=== PATIENT | female | born 1955 | race Caucasian/White ===

== ENCOUNTER 2016-06-02 21:22 | Inpatient (IN) | payer BC ==
--- NOTE | ~2016-06-02 | DS ---
Discharge Summary [facility] [address] [place]. [address] NAME: MOOKIE LUCAS : 59 STATUS : ADM IN PAT#: [id number] AGE: 61 ADM/REG DATE : 06/02/16 MR#: [id number] REPORT SERV DATE: 06/21/16 DICTATED BY: Sushila GUERRERO DATE: 06/21/16 REPORT STATUS : Draft TRANSCRIBED BY: MODL DATE: 06/21/16 ADMISSION DATE: 06/02/2016 DISCHARGE DATE: INTERIM SUMMARY DATE: 06/21/2016. For details of earlier hospital stay, see previous interim summaries, most recently dictated by myself on 06/14/2016. DIAGNOSES AT THE TIME OF THIS INTERIM SUMMARY: 1. Encephalopathy, present on admission, resolved, suspected serotonin syndrome. 2. Insulin-requiring diabetes. 3. Chronic kidney disease. 4. Hypertension. 5. Catheter-related urinary tract infection, cultures show Escherichia coli. 6. Anemia, etiology unclear, evaluation in progress. HOSPITAL COURSE: Continuing on with hospital stay starting 06/15/2016: The patient continues to make tremendous progress. She is awake, alert, conversant, has passed her swallow evaluation, and has been started on a diet. We have transitioned her from intermediate care to [address] [place], [place] [address]etry. We still are waiting urine studies and urinalysis for heavy metal screen. Despite her remarkable recovery, she does have a few minor issues that we are currently treating. She did develop a catheter-associated UTI. The catheter has been removed. Her culture was positive for E coli. She initially received ceftriaxone, and based on the culture data, has been transitioned to amoxicillin. She is currently on day 4 of a 7-day course of therapy. She has also had progressive anemia of uncertain etiology. We are checking fecal occult blood test, iron studies, and monitoring her CBC. We have sent initial evaluation for rehab placement. [facility] has accepted her medically and we are awaiting financial approval. Hopefully, over the weekend, we can further evaluate and clarify her anemia, and then in the first of the week, she can transition to rehabilitation for ongoing improvement in her functional status. The patient continues to be followed by the Hospitalist Services as well as the Neurology Service, continues to be seen and evaluated by both Physical and Occupational therapy. LABORATORY DATA: Significant labs at the time of this interim summary show a red cell count of 7.7, hematocrit of 24.3, BUN of 24, creatinine of 1.00. [facility] Sushila Guerrero M.D. / [id number] Discharge Summary [address] [address] NAME: MOOKIE LUCAS : 59 STATUS : ADM IN PAT#: [id number] AGE: 61 ADM/REG DATE : 06/02/16 MR#: [id number] REPORT SERV DATE: 06/21/16 DICTATED BY: Sushila GUERRERO DATE: 06/21/16 REPORT STATUS : Draft TRANSCRIBED BY: LEIA DATE: 06/21/16 CC: Екатерина Blackman
--- NOTE | ~2016-06-02 | DS ---
Discharge Summary [facility] [address] [place]. [address] NAME: MOOKIE LUCAS : 59 STATUS : DIS IN PAT#: [id number] AGE: 61 ADM/REG DATE : 06/02/16 MR#: [id number] REPORT SERV DATE: 06/29/16 DICTATED BY: PAVAN BARRAZA DATE: 06/28/16 REPORT STATUS : Draft TRANSCRIBED BY: MODL DATE: 06/28/16 ADMISSION DATE: 06/02/2016 DISCHARGE DATE: 06/28/2016 DISCHARGE DIAGNOSES: 1. Encephalopathy, present on admission, thought to be due to serotonin syndrome. 2. Type 2 diabetes mellitus, somewhat uncontrolled. 3. Chronic kidney disease. 4. Hypertension. 5. Catheter-related urinary tract infection with Escherichia coli, currently treated. 6. Anemia of most likely chronic disease. 7. Chronic pain syndrome. 8. Generalized debility. 9. Depression and anxiety. 10.History of right foot cellulitis, currently resolved. 11.Obstructive sleep apnea, on nighttime BiPAP. 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 13.History of pneumonia. 14.History of gastroparesis. CONSULTANTS DURING THIS HOSPITALIZATION: 1. Citlaly Marmolejo MD of Neurology. 2. Manjit Rob M.D. of Cardiology. INVASIVE PROCEDURES DONE DURING THIS HOSPITALIZATION: None. IMAGING DONE DURING THIS HOSPITALIZATION: Multiple. Please refer to the chart for details of that. BRIEF HISTORY OF PRESENT ILLNESS: The patient is a 61-year-old white female, admitted because of metabolic encephalopathy, acute kidney injury. For detailed history and physical exam, please see note dictated by Dr. Chris Magallanes on 06/02/2016. HOSPITAL COURSE: After being admitted to the hospital, this patient continued to be in the intermediate care unit up until 06/21/2016. Please refer to two interim summaries dictated by Dr. Ho, one on 06/14/2016 and one on 06/21/2016. This patient then was transitioned to the floor and after being transitioned to the floor, this patient continued to be followed by Neurology and also care was transferred to Dr. Reza and Dr. Smith, but while on the floor, this patient was receiving benzodiazepines and sedating medications. She had an episode of respiratory arrest and cardiac arrest. She was immediately transferred to the ICU, the patient spent two days in the ICU, and then transferred back to the floor with continued BiPAP at night. Since on the floor, this patient has done relatively well and continued to improve. Her glucoses have been somewhat high, but we have started to adjust her insulin and she continues to do better with that. There have been multiple concerns about her overall care and some social issues as documented in the chart by other physicians. We have collected a 24-hour urine sample for possibility of porphyria Discharge Summary [address] [address] NAME: MOOKIE LUCAS : 59 STATUS : DIS IN PAT#: [id number] AGE: 61 ADM/REG DATE : 06/02/16 MR#: [id number] REPORT SERV DATE: 06/29/16 DICTATED BY: PAVAN BARRAZA DATE: 06/28/16 REPORT STATUS : Draft TRANSCRIBED BY: LEIA DATE: 06/28/16 and studies, these studies will be followed up in the outpatient setting. Neurology has signed off. All other consultants have signed off and recommended that this patient can be transferred to rehab at this time, she remained stable and is being transferred back to rehab in stable condition. DISCHARGE DISPOSITION: To rehab. DISCHARGE ACTIVITY: Per facility. DISCHARGE DIET: 1800-calorie [employer] diet. DISCHARGE MEDICATIONS: Norvasc 10 mg twice daily, vitamin C 500 mg once daily, aspirin 81 mg once daily, Lipitor 40 mg once daily, baclofen 10 mg twice daily, vitamin B12 2500 mcg sublingual daily, vitamin D 50,000 units once weekly for eight doses and then all oral 1000 units per day, gabapentin 300 mg three times daily for chronic pain control, NovoLog insulin 5 units subcutaneously before each meal, lisinopril 20 mg once daily, multivitamins one tablet daily, MiraLAX one packet daily, Catapres patch 0.3 topical once every seven days, hydralazine 100 mg twice daily, Levemir 15 units subcutaneously once at bedtime, Coreg 6.25 mg p.o. twice daily, multivitamins one tablet daily, Zantac 150 mg twice daily, and fish oil one tablet p.o. once at bedtime. DISCHARGE FOLLOWUP: With Dr. Maddie Powell post rehab. More than 40 minutes spent planning this patient's discharge, reconciling medications, arranging proper discharge, and documenting this discharge. PHUC/SHAIL Pavan Barraza M.D. / [id number] CC: Екатерина Soto REBECCA ANN
--- NOTE | ~2016-06-02 | HP ---
History And Physical [place] [address] [facility] [place]. [address] NAME: MOOKIE LUCAS : 59 STATUS : ADM Shell PAT#: [id number] AGE: 61 ADM/REG DATE : 06/02/16 MR#: [id number] REPORT SERV DATE: 06/03/16 DICTATED BY: DEREK INFANTE DATE: 06/03/16 REPORT STATUS : Draft TRANSCRIBED BY: MODL DATE: 06/03/16 DATE OF ADMISSION: 06/02/2016 CHIEF COMPLAINT: A 61-year-old female, presenting with prolonged periods of incoherence and confusion. HISTORY OF PRESENT ILLNESS: The patient's history was obtained through careful interview with the patient, , coupled with review of [employer] and [employer] medical records. The patient states that about a month ago she had her insulin pump adjusted by her rubber calender helper, Dr. Topher Patterson, and has been having increasing hypoglycemic episodes with sometimes her blood sugar in the 50s, but she has also noticed at times that she has wide variations in her blood sugars with also frequent blood sugars in the 300s. In fact, over the last two days, there have been more severely elevated blood sugars than low's. But then on the morning of admission, she had gone to confucianist, and by the afternoon, had developed some hypoglycemia that she was treating and then she and her were going to go to evening confucianist as well but she began staggering and she went up to the car. They finally got to the confucianist at about 04:30 p.m., and she felt extremely weak. They checked her blood sugar and it was 198 and then patient passed out and became incoherent and unable to be aroused for a period of time. In total, for about four hours, the patient was in and out of consciousness. She was able at times to ambulate to the car but became incoherent. She had lost memory completely of all these episodes. Finally at about 8:30 in the evening, the patient began to revive, but she seemed confused about what was going on around here and even slightly disoriented. There was no hemiparesis. No double vision. No dysarthria. No difficulty swallowing. No vertigo. No dizziness. No lightheadedness. She does describe some reflux symptoms but no nausea or vomiting. She states that she has "immense bloating of her abdomen," a discomfort of about a 6/10 severity. She has chronic back pain in the lower portion for which she takes Neurontin, aching quality, 8/10 severity, exacerbated by her illness today. She did lose urine continence early in the afternoon before this episode came on but has not this evening. REVIEW OF SYSTEMS: Otherwise, complete review of systems was obtained and was negative. PAST MEDICAL HISTORY: 1. Chronic kidney disease, stage III, followed by Dr. Rocha. History And Physical [address] [address] NAME: MOOKIE LUCAS : 59 STATUS : ADM Shell PAT#: [id number] AGE: 61 ADM/REG DATE : 06/02/16 MR#: [id number] REPORT SERV DATE: 06/03/16 DICTATED BY: DEREK INFANTE DATE: 06/03/16 REPORT STATUS : Draft TRANSCRIBED BY: LEIA DATE: 06/03/16 2. Diabetes, on an insulin pump, followed by Dr. Topher Patterson. 3. Depression and anxiety. 4. Hypertension. 5. Right foot cellulitis. 6. Obstructive sleep apnea, on BiPAP. 7. Neuropathy. 8. Retinopathy. 9. Pneumonia. 10.Gastroparesis. PAST SURGICAL HISTORY: 1. Hysterectomy. 2. Cholecystectomy. 3. Neck cyst surgery. 4. Back abscess, incision and drainage. ALLERGIES TO: Zoloft, Paxil, Cymbalta, sulfa, and Phenergan. SOCIAL HISTORY: No tobacco abuse. Occasional alcohol but has quit for a number of years. She became a in 2004 but has been remarried for about three years now. She and her live in [place], [place]. She works in a [employer] center for the [employer]. She used to work in [employer]. FAMILY HISTORY: Brother and father with diabetes and heart disease. Mother with breast cancer. CURRENT MEDICATIONS: Include amitriptyline 25 mg p.o. at bedtime, vitamin C, aspirin 81 mg p.o. daily, Lipitor 40 mg p.o. daily, Bumex 1 mg p.o. b.i.d., vitamin D, Celexa 20 mg p.o. b.i.d., vitamin B12, Neurontin 600 mg in the morning and 900 mg at night, insulin pump with NovoLog insulin, lisinopril 20 mg p.o. b.i.d., multivitamin, Zantac 150 mg p.o. b.i.d., Nucynta 50 mg p.o. t.i.d., Coreg 6.25 mg p.o. b.i.d., fish oil, and apple cider vinegar p.o. b.i.d. PHYSICAL EXAMINATION: VITAL SIGNS: Temperature 98.7, pulse 79, blood pressure 233/99, respiratory rate 17, and O2 saturation 97% on room air. GENERAL: A pleasant, cooperative female. She is in no evidence of distress at this time. NEUROLOGICAL: Cranial nerves 2 through 12 are intact and symmetrical. The patient has 5/5 strength in upper and lower extremities that is symmetrical. HEENT: Pupils are equal, round, and reactive to light. No conjunctival pallor. No scleral icterus. Nares are patent. Oropharynx is clear of obstruction. Very dry mucous membranes. NECK: Trachea midline. No thyromegaly. LYMPH: No cervical lymphadenopathy. No supraclavicular lymphadenopathy. RESPIRATORY: Clear to auscultation at bases. No wheezes, rales, or rhonchi. Normal respiratory effort. CARDIOVASCULAR: Regular rate and rhythm. No murmurs, rubs, or gallops. No extremity edema History And Physical [address] [address] NAME: MOOKIE LUCAS : 59 STATUS : ADM Shell PAT#: [id number] AGE: 61 ADM/REG DATE : 06/02/16 MR#: [id number] REPORT SERV DATE: 06/03/16 DICTATED BY: DEREK INFANTE DATE: 06/03/16 REPORT STATUS : Draft TRANSCRIBED BY: LEIA DATE: 06/03/16 is appreciated. ABDOMEN: Soft, nontender, nondistended. Normal bowel sounds auscultated throughout. No organomegaly. DERMATOLOGICAL: Warm and dry extremities. No pallor, no cyanosis. PSYCHIATRIC: Notably flat affect, but claims to be in a good mood. She is currently alert and oriented x3, although she has loss of memory of some of the events leading up to admission. LABORATORY DATA: White blood cell count 8.3, hemoglobin 11, hematocrit 34, and platelets 282. Sodium 143, potassium 3.8, chloride 102, bicarb 28, BUN 36, creatinine 1.60, glucose 243, brain natriuretic peptide 37, troponin negative, and INR 1.0. STUDIES: 1. Chest x-ray by my own evaluation shows no acute cardiopulmonary process. 2. EKG by my own evaluation shows sinus rhythm, first-degree AV block, a large anterior infarct, no comparison EKG at this time. 3. CT scan of the brain without contrast shows no acute intracranial process. ASSESSMENT AND PLAN: 1. Encephalopathy, incoherence, about a four hour period of prolonged illness, quite severe presentation with postictal like period but no convulsions. A negative CT scan was reported. I would like to obtain a neurology consult. Check an EEG. Check an MRI of the brain. Check telemetry. Check echocardiogram. Check fasting lipid panel. 2. Hypertensive urgency. Placed on nitroglycerin paste, p.r.n. medications. Continue home medications. 3. Uncontrolled diabetes. Continue insulin pump. Check hemoglobin A1c. The patient does see Dr. Topher Patterson as outpatient, an rubber calender helper. 4. Obstructive sleep apnea. Continue nighttime BiPAP. 5. Chronic kidney disease, stage III. 6. Lymphedema. Check a venous Doppler ultrasound of lower extremities to rule out DVT. K[facility]/MODL Derek Infante M.D. / [id number] CC: Emmett Melvin Jr, MD
--- NOTE | ~2016-06-02 | PUL ---
[place] [address] [place]. [address] NAME: MOOKIE LUCAS : 59 STATUS : ADM IN PAT#: [id number] AGE: 61 ADM/REG DATE : 06/02/16 MR#: [id number] REPORT SERV DATE: 06/09/16 DICTATED BY: JEFFREY VERDUZCO DATE: 06/09/16 REPORT STATUS : Draft TRANSCRIBED BY: LEIA DATE: 06/09/16 PULMONARY FUNCTION TEST Overnight oximetry performed on 2 liters nasal cannula. Total valid sampling time was 6 hours and 51 minutes. Saturations were less than 88% for 6 hours and 46 minutes. INTERPRETATION: While on 2 liters nasal cannula, abnormal oximetry report, consider oxygen titration study or sleep study. Clinical correlation is recommended. JONES/LEIA Jeffrey Verduzco M.D. / [id number] CC: Med Smith MD
--- NOTE | ~2016-06-02 | EEG ---
Electroencephalogram [place] [address] [place]. [address] NAME: MOOKIE LUCAS : 59 STATUS : ADM IN PAT#: [id number] AGE: 61 ADM/REG DATE : 06/02/16 MR#: [id number] REPORT SERV DATE: 06/14/16 DICTATED BY: CITLALY MARMOLEJO DATE: 06/14/16 REPORT STATUS : Draft TRANSCRIBED BY: LEIA DATE: 06/14/16 EEG NUMBER: [id number]. INTERPRETING PHYSICIAN: Citlaly Marmolejo M.D. AGE: 61. REASON FOR EEG: Encephalopathy, abnormal movements, rule out seizures. 23 surface electrodes, 10-20 international placement was used. The patient was noted to be unresponsive, restless with intermittent tonic activity, which involve torso on both arms. Photic stimulation was performed. The background activity consisted of continuous low voltage beta range activity. Predominant rhythm posteriorly was between 4 and 6 cycles per second of low-voltage. Intermittent triphasic waveforms were noted anteriorly and centrally, although the patient appeared to have muscle tensing with developer support engineer increase of muscle activity on the EEG. No paroxysmal or epileptiform activity was seen during this study. No significant asymmetry of cerebral activity was present. Photic stimulation did not bring out additional abnormality. IMPRESSION: ABNORMAL EEG CHARACTERIZED BY PRESENCE OF SLOWING AND DISORGANIZATION OF CEREBRAL ACTIVITY. LARGE AMOUNT OF SUPERIMPOSED LOW VOLTAGE BETA RANGE ACTIVITY MAY REPRESENT MEDICATION EFFECT. NO PAROXYSMAL OR EPILEPTIFORM ACTIVITY WAS SEEN DURING THIS STUDY. INTERMITTENT BIPHASIC AND TRIPHASIC WAVEFORMS. THE PATIENT SUGGEST PRESENCE OF UNDERLYING METABOLIC ENCEPHALOPATHY. CLINICAL CORRELATION IS RECOMMENDED. UMER/LEIA Citlaly Marmolejo MD / [id number] CC: Екатерина Munoz Rebecca Ann
--- NOTE | ~2016-06-02 | CN ---
Consultation Report [facility] [address] [place]. [address] NAME: MOOKIE LUCAS : 59 STATUS : ADM Shell PAT#: [id number] AGE: 61 ADM/REG DATE : 06/02/16 MR#: [id number] REPORT SERV DATE: 06/03/16 DICTATED BY: GARY WILKES DATE: 06/03/16 REPORT STATUS : Draft TRANSCRIBED BY: MODL DATE: 06/03/16 NEUROLOGY CONSULTATION DATE OF CONSULTATION: 06/03/2016 REASON FOR CONSULTATION: Incoherence and confusion. PCP: Dr. Kenton Powell. HOSPITALIST: Dr. Emmett Melvin. HISTORY OF PRESENT ILLNESS: The patient is a 61-year-old female, who was diagnosed with diabetes mellitus type 1 after the of her first . She claims that she is a very brittle diabetic. She has an insulin pump but as of lately, she has been hypoglycemic. She states that she has been "very bad over the Marshall holidays" which has seemed to contribute to her hypoglycemia. Yesterday, she had an episode of hypoglycemia in the morning and corrected it with sugar and protein. She went to [employer] with her (who is the solidworks mechanical designer) and supposedly walked in the baptism at 3:45 p.m. The patient does not remember this. She sat down next to her in the [employer] pew for approximately 30 minutes (she did not remember this). She walked out of the baptism with some assistance and it was at this time, that her and baptism members realized something was wrong. Her called a physician friend who suggested that he bring her to the emergency department for further evaluation and treatment. At approximately 8:30 p.m., the patient "awoke and remembered seeing the [employer] on TV". She did not know where she was, she was groggy and confused. The patient has had episodes of hypoglycemia where she has passed out but this one was different. This lasted much longer and had elements of drowsiness and confusion. PAST MEDICAL HISTORY: Chronic kidney disease stage 3. Diabetes mellitus type 1 (patient on insulin pump). Depression and anxiety. Hypertension. Right foot cellulitis. Obstructive sleep apnea (the patient uses BiPAP). Neuropathy. Retinopathy. History of pneumonia. Gastroparesis. PAST SURGICAL HISTORY: Total abdominal hysterectomy, cholecystectomy, cyst removal on the neck, and back abscess incision and drainage. HOME MEDICATION LIST: Includes Elavil 25 mg at bedtime; vitamin C 500 mg daily; aspirin 81 mg daily; Lipitor 40 mg daily; Bumex 1 mg twice a day; vitamin D 1000 units daily; Celexa 20 mg b.i.d.; vitamin B12 of 2500 mcg daily; Neurontin 600 mg in the morning and 900 mg at bedtime; NovoLog insulin sliding scale per [employer] pump; Zestril 20 mg twice a day; centrum tablet daily; Zantac 150 mg twice a day; Nucynta 50 mg three times a day; Coreg 0.5 mg twice a day; fish oil 1 tablet daily; and apple cider vinegar one tablet twice a day. Consultation Report [facility] [address] [place]. [address] NAME: MOOKIE LUCAS : 59 STATUS : ADM Shell PAT#: [id number] AGE: 61 ADM/REG DATE : 06/02/16 MR#: [id number] REPORT SERV DATE: 06/03/16 DICTATED BY: GARY WILKES DATE: 06/03/16 REPORT STATUS : Draft TRANSCRIBED BY: LEIA DATE: 06/03/16 ALLERGIES: CYMBALTA, BACTRIM, PHENERGAN, ZOLOFT, AND PAXIL. SOCIAL HISTORY: The patient lives with her second . She has no children. She works in a [employer] center for the [employer]. She does not smoke, drink alcohol, or use illicits. FAMILY HISTORY: The patient's mother from breast cancer. Her father from complications of diabetes and heart disease. Her brother also had complications from diabetes and heart disease. REVIEW OF SYSTEMS: See HPI. PHYSICAL EXAMINATION: GENERAL: The patient is a 61-year-old female, who stands 5 feet 5 inches tall. Weighs 210 pounds. She is afebrile. VITAL SIGNS: Heart rate 78, respiratory rate 15, O2 saturations on room air 98%, and blood pressure 144/63. NEUROLOGIC: The patient is alert. She is oriented x4, pleasant, communicates appropriately. Pupils are 3 mm, PERRLA. Cranial nerves II through XII are intact. She can move all extremities x4. There is no tremor, dysmetria, and asterixis. No ataxia with uavysf-jy-ozve or unuj-uc-cuyi. Upper extremity strength is 5/5. Upper DTRs 2+ bilaterally. No sensory deficits. Lower extremities, strength is 5/5. Patellar reflexes 2+ bilaterally. Achilles 1+ bilaterally. Downgoing toes. The patient can get up and ambulate. No ataxia. Romberg negative. She is unable to tandem. Sensation on the lower extremities is diminished. Position sense intact. Vibratory and temperature sensation mildly diminished in both feet. DIAGNOSTICS: CBC is normal. BMP: Potassium 3.7, BUN 30, creatinine 1.26, glucose 163. Venous duplex study is negative for DVT. Chest x-ray no acute changes. CT of the brain, no acute changes. NIH stroke scale is 0. ASSESSMENT/PLAN: Syncopal episode. Etiology unknown. The patient could have had hypoglycemia, seizure, TIA, or orthostasis. At this point, the patient will undergo an MRI of the brain without gadolinium and an MRA of the head and neck with gadolinium. She will have an EEG done today. She already had an echocardiogram. The nursing staff will check orthostatic vital signs every shift. Additional lab work will be checked and the patient's medications will be evaluated. She is on a lot of serotonergic agents. Her Nucynta will be discontinued and she will be kept on Elavil and Celexa. Thank you again for including us in consultation. ADRIENNE/LEIA Consultation Report [address] [place]. [address] NAME: MOOKIE LUCAS : 59 STATUS : ADM Shell PAT#: [id number] AGE: 61 ADM/REG DATE : 06/02/16 MR#: [id number] REPORT SERV DATE: 06/03/16 DICTATED BY: GARY WILKES DATE: 06/03/16 REPORT STATUS : Draft TRANSCRIBED BY: LEIA DATE: 06/03/16 SWATHI Scott-MELY / [id number] CC: Laine Osborn M.D. KENTON Melvin Jr, MD
--- NOTE | ~2016-06-02 | EEG ---
Electroencephalogram [facility] [address] [place]. [address] NAME: MOOKIE LUCAS : 59 STATUS : ADM IN PAT#: [id number] AGE: 61 ADM/REG DATE : 06/02/16 MR#: [id number] REPORT SERV DATE: 06/07/16 DICTATED BY: DATE: REPORT STATUS : Draft TRANSCRIBED BY: MODL DATE: 06/07/16 NEUROLOGY EEG REPORT. DATE OF EVALUATION: 06/06/2016 at 0300 hour to 06/06/2016 at 2154 hour. This is an extended EEG monitoring DESCRIPTION: This EEG was performed using 10/20 electrode placement system. During the EEG study, the patient was noted to have symmetrical baseline cerebral activity with the patient noted to have generalized slowing throughout the EEG study, predominant occipital rhythm is roughly 6 hertz during the EEG study. The patient has not received any photic stimulation or hyperventilation during the EEG study. No electrographic seizure was otherwise noted. No seizure activity was seen during the EEG study. The patient subsequently removed the EEG electrodes as a result, continuous EEG study was discontinued on 06/06/2016 at 2154 hour. INTERPRETATION: This EEG study obtained mostly during encephalopathic state, may be considered abnormal secondary to presence of generalized slowing. Otherwise, no focal abnormalities, seizure activity, or seizure discharge was seen. No electrographic seizure was noted. Clinical correlation is recommended. [facility]/LEIA Dwayne Harris MD / [id number] CC: Med Smith MD
--- NOTE | ~2016-06-02 | DS ---
Discharge Summary [facility] [address] [place]. [address] NAME: MOOKIE LUCAS : 59 STATUS : ADM IN PAT#: [id number] AGE: 61 ADM/REG DATE : 06/02/16 MR#: [id number] REPORT SERV DATE: 06/14/16 DICTATED BY: Sushila HO DATE: 06/14/16 REPORT STATUS : Draft TRANSCRIBED BY: MODL DATE: 06/14/16 ADMISSION DATE: 06/03/2016 DISCHARGE DATE: 06/14/2016 INTERIM DISCHARGE SUMMARY DIAGNOSES AT TIME OF INTERIM SUMMARY: 1. Acute encephalopathy present on admission. 2. Possible serotonin syndrome. 3. Uncontrolled insulin-requiring diabetes. 4. Hypernatremia. 5. Chronic kidney disease. 6. Hypertension. 7. Chronic pain syndrome. CONSULT: Neurology. PROCEDURES: Lumbar puncture, EEG, MRI brain. BRIEF HOSPITAL COURSE: A 61-year-old female patient was admitted with agitation and altered mental status on 06/03/2016 of uncertain etiology, placed in intermediate care with consultation to Neurology. The patient's primary evaluation included an MRI of the brain, which showed no acute structural abnormalities. She had an EEG which showed generalized slowing, consistent with encephalopathy, but no focal discharge to consider the likelihood of seizure activity. The patient did undergo a lumbar puncture, which showed no evidence of infection and fungal studies and cytology remained pending. Additional evaluation showed numerous lab tests that have failed to show a clear etiology of her encephalopathy. She is currently awaiting the result of a 24-hour urine for heavy metals screens ordered by Neurology to help us understand the nature of her encephalopathy. With regard to medical support, she continues on her home medications per her medication reconciliation form. The patient is requiring D5W IV fluids because of hypernatremia, which is slowly improving. She has a Dobbhoff tube and is tolerating feedings with Glucerna at a goal rate. Her hyperglycemia is currently managed with a combination of Levemir, insulin, and sliding scale. Because of the patient's outpatient exposure from a medication standpoint, one possible consideration to explain her encephalopathy has been the consideration of serotonin syndrome. The patient has had in addition to altered mental status a low level elevation in her CPK in 300 to 400 range as well as some muscular rigidity. As a result, the patient has been placed on cyproheptadine per Neurology with the addition of baclofen. The patient has also had a trial of IV Solu-Medrol because of elevated inflammatory markers, but because this showed no evidence of an improvement in her mental status, her steroid therapy was then weaned off. Now that she is off Solu-Medrol, we will anticipate some improvement in the ongoing management of her blood glucose. Multiple conversations have been held with the patient's , who is the power of real estate attorney. She remains a full code. He is understanding the complex nature of her evaluation and her current lack of a defining diagnosis for encephalopathy. The patient continues to be followed closely by the Neurology Service as well as the Hospitalist Service. Another member of the hospitalist team will Discharge Summary [address] [place]. [address] NAME: MOOKIE LUCAS : 59 STATUS : ADM IN PAT#: [id number] AGE: 61 ADM/REG DATE : 06/02/16 MR#: [id number] REPORT SERV DATE: 06/14/16 DICTATED BY: Sushila HO DATE: 06/14/16 REPORT STATUS : Draft TRANSCRIBED BY: LEIA DATE: 06/14/16 manage the patient starting 06/15/2016, with ongoing input from Neurology. Followup lab work has been ordered for 06/15/2016 as we continue to closely monitor her blood glucose and electrolytes. [facility]/LEIA Sushila Ho M.D. / [id number]
--- NOTE | ~2016-06-02 | EEG ---
Electroencephalogram [place] [id number] [place]. [address] NAME: MOOKIE LUCAS : 59 STATUS : ADM [employer] PAT#: [id number] AGE: 61 ADM/REG DATE : 06/02/16 MR#: [id number] REPORT SERV DATE: 06/05/16 DICTATED BY: CITLALY MARMOLEJO DATE: 06/04/16 REPORT STATUS : Draft TRANSCRIBED BY: LEIA DATE: 06/04/16 ELECTROENCEPHALOGRAPHY REPORT ORDERING PHYSICIAN: Pearl Thornton [facility] INTERPRETING PHYSICIAN: Citlaly Marmolejo MD, Neurology. PATIENT'S AGE: 61. REASON FOR EEG: Episode of confusion and incontinence, rule out seizures. Twenty-three surface electrodes, 10-20 international placement was used. The patient was described as awake, drowsy, and asleep throughout the study. Photic stimulation was performed. The background activity consisted of low-voltage, poorly-organized, 9 cycles per second, located in the posterior head regions. Large amount of low voltage beta range activity was noted, scattered throughout, was prominently seen in the anterior head regions. No significant asymmetry of cerebral activity was noted during this study. No paroxysmal epileptiform activity was observed. Photic stimulation did not bring out a driving response. The patient's monitoring engineer shows sinus rhythm, rate of approximately 68 beats per minute. IMPRESSION: THIS EEG IS WITHIN NORMAL RANGE. CLINICAL CORRELATION IS RECOMMENDED. ADDITIONAL ABNORMALITIES: THIS EEG REMAINED SYMMETRICAL. NO EVIDENCE OF PAROXYSMAL OR EPILEPTIFORM ACTIVITY WAS NOTED. [facility]/LEIA Citlaly Marmolejo MD / [id number] CC: Emmett Melvin Jr, MD REBECCA CARTER
--- NOTE | ~2016-06-02 | CN ---
Consultation Report [place] [id number] [facility] [place]. [address] NAME: MOOKIE LUCAS : 59 STATUS : ADM IN PAT#: [id number] AGE: 61 ADM/REG DATE : 06/02/16 MR#: [id number] REPORT SERV DATE: 06/07/16 DICTATED BY: CHIP ORB JR. DATE: 06/07/16 REPORT STATUS : Draft TRANSCRIBED BY: MODIan DATE: 06/07/16 CARDIOLOGY CONSULTATION DATE OF CONSULTATION: 06/07/2016 REASON FOR CONSULTATION: Regarding possible cardiac cause for brief syncopal episodes and encephalopathic state, hypertension. HISTORY OF PRESENT ILLNESS: Chart reviewed and has been interviewed. The patient is too delirious to provide any meaningful history at this time. The describes her passing out in alevism and having subsequent altered mental status, delirium etc. Cardiac workup thus far has shown normal telemetry. An EKG with poor R-wave progression, but not diagnostic of the anterior MO. Troponin is normal. Echocardiogram is normal, specifically ejection fraction is 60% and there is normal left atrial size with no substrate for paroxysmal atrial fibrillation. No change in echo appearance since 2014 study. No valvular heart disease. Other vascular workup raises a question of left common carotid stenosis, but reading is equivocal on both MRA and carotid ultrasound examinations due to tortuosity, the patient's movement artifact etc. Currently, she is being moved to the [facility] to start on a Precedex drip, so lumbar puncture can be accomplished safely. Cardiovascular risk factors include hypertension, insulin-dependent diabetes mellitus. She has chronic kidney disease with current BUN and creatinine of 51 and 1.8 respectively. BNP is normal at 73. SOCIAL HISTORY: Works in [employer] for a [employer]. No tobacco or alcohol or illicit drugs. FAMILY HISTORY: Unobtainable. REVIEW OF SYSTEMS: Unobtainable. MEDICATIONS: Hospital and home medications reviewed. ALLERGIES: MULTIPLE ALLERGIES REVIEWED. PHYSICAL EXAMINATION: VITAL SIGNS: Blood pressure 141/104, pulse is 102 and regular, respirations 22, temperature 100.1 degrees Fahrenheit. Consultation Report [place] [id number] [facility] [place]. [address] NAME: MOOKIE LUCAS : 59 STATUS : ADM IN PAT#: [id number] AGE: 61 ADM/REG DATE : 06/02/16 MR#: [id number] REPORT SERV DATE: 06/07/16 DICTATED BY: CHIP ROB JR. DATE: 06/07/16 REPORT STATUS : Draft TRANSCRIBED BY: LEIA DATE: 06/07/16 HEENT: No xanthelasma. NECK: No JVD at 30 degrees, no thyromegaly, no carotid bruit. LUNGS: Clear to auscultation and percussion. COR: No thrills, heaves, normal S1, S2. No gallop. No rub. No murmur. ABD: Soft, nontender, no hepatosplenomegaly, no mass. EXT: Without edema or pulse deficit. MS: Back without spine or costovertebral angle tenderness. NEURO: Delirium. Moving all 4 extremities. DISCUSSION: Would continue to monitor on telemetry, but I cannot identify any cause of cardiac syncope at this point in time. Cardiac workup thus far is unremarkable including normal cardiovascular exam, normal echocardiogram, normal EKG, normal cardiac enzymes. She could have undiagnosed coronary heart disease and she is diabetic and has coronary risk factors, but at this point in time workup is impossible. Would certainly like to avoid contrast studies given creatinine of 1.8 and diabetes. Hypertension needs to be controlled. The most pressing problem is to determine the etiology of her severe encephalopathic state. Lumbar puncture is being planned after transfer to [facility] and the patient on sedation to allow for a safe procedure. [facility] available on a p.r.n. basis. Please call if cardiac problems arise. [facility]/LEIA Chip Rob Jr., M.D. / [id number] CC: Emmett Melvin Jr, MD
[2016-06-02 19:43] LABS: BASOPHILS 0.5 %; BASOPHILS ABSOLUTE 0.04 10/3/uL (0.0-0.16); EOSINOPHILS 8.5 %; ER CBC TAT 0 Hrs 10 Mins; HEMATOCRIT 33.9 % (36.0-48.0); IMMATURE GRANULOCYTES 0.2 %; IMMATURE GRANULOCYTES ABSOLUTE 0.02 10/3/uL (0.0-0.11); LYMPHOCYTES 23.9 %; LYMPHOCYTES ABSOLUTE 1.98 10/3/uL (0.67-4.30); MANUAL DIFF NO %; MEAN CORPUS HGB CONC 32.4 g/dL (32.0-36.0); MEAN CORPUSCULAR HEMOGLOB 30.9 pg (26.0-34.0); MEAN CORPUSCULAR VOLUME 95.2 fL (80-100); MEAN PLATELET VOLUME 8.9 fL (9.2-13.0); MONOCYTES 6.5 %; MONOCYTES ABSOLUTE 0.54 10/3/uL (0.21-1.20); NEUTROPHILS 60.4 %; NEUTROPHILS ABSOLUTE 4.99 10/3/uL (2.02-8.40); PLATELET COUNT 282 10/3/uL (150-400); RBC DISTRIBUTION WIDTH 13.4 % (12.0-16.0); RED CELL COUNT 3.56 10/6/uL (4.0-5.6); WHITE BLOOD CELLS 8.3 10/3/uL (4.5-10.5)
[2016-06-02 19:48] LABS: PARTIAL THROMBO TIME 31.7 SEC (22.5-37.2); PROTIME (NOT ORD) 13.1 SEC (12.0-14.5)
[2016-06-02 19:59] LABS: BUN (BLOOD UREA NITROGEN) 36 MG/DL (6-23); CALCIUM, SERUM 9.3 MG/DL (8.5-10.4); CHEST PAIN PROFILE TAT 0 Hrs 26 Mins; CHLORIDE, SERUM 102 MMOL/L (96-112); SODIUM, SERUM 143 MMOL/L (135-148); TROPONIN I <0.02 NG/ML (<0.05)
[2016-06-02 20:00] LABS: CO2 (CARBON DIOXIDE) 28 MMOL/L (24-34); CREATININE 1.59 MG/DL (0.55-1.02); GFR AFRICAN AMERICAN 41 ML/MIN (>=60); GFR NON AFRICAN AMERICAN 35 ML/MIN (>=60); GLUCOSE, SERUM 243 MG/DL (60-99); POTASSIUM, SERUM 3.8 MMOL/L (3.5-5.3)
[~2016-06-02 21:22] MED LIST: AMIT10 PO; AMIT25 PO; AUG875 PO; BP MED; BUM1 PO; CELEXA20 PO; CENTRUM TAB1 TAB PO; COREG12 PO; ENDOCET1 TA1 PO; FLEX PO; FLEXERIL; IRON OTC PO; KDUR20 PO; LANTUS SC; LEVEMIR SC; LEXAPRO PO; LEXAPRO10 PO; LEXAPRO20 PO; LIPITOR10 PO; LIPITOR40 PO; LOVASTATIN PO; MAGNESIUM OTC PO; MAGOX4 PO; MEVACOR PO; MIRALAXPKT PO; NEUR300 PO; NEUR600 PO; NORCO1 TA1 PO; NORV5 PO; NOVLOGPUMP SC; NOVOLOG SC; OTC IRON TAB PO; OTC MAGNESIUM PO; PRILO PO; PRIN10 PO; PRIN20 PO; PRIN5 PO; REG PO; T PO; ULTRAM; ULTRAM50 PO; VENTOLIN HFA INH; ZESTORETIC PO; ZESTRIL10 MG PO; ZOFRAN4 PO
[2016-06-02] MEDS ORDERED: ZESTRIL20 MG PO (23:45)
[2016-06-02 23:48] LABS: B NATRIURETIC PEPTIDE (BNP) 37.5 PG/ML (< 100.0)
[2016-06-02] MEDS ORDERED: NEUR300 PO ×2 (23:53)
[2016-06-02] MEDS ORDERED: AMIT25 PO (23:53)
[2016-06-02] MEDS ORDERED: NOVLOGPUMP SC (23:53)
[2016-06-02] MEDS ORDERED: LIPITOR40 PO (23:53)
[2016-06-02] MEDS ORDERED: COREG PO (23:54)
[2016-06-02] MEDS ORDERED: CELEXA10 PO (23:54)
[2016-06-02] MEDS ORDERED: NUCYNTA50 MG PO (23:57)
[2016-06-02] MEDS ORDERED: VITAMIN B-122500 MCG SL (23:57)
[2016-06-02] MEDS ORDERED: VITC500 PO (23:57)
[2016-06-02] MEDS ORDERED: VITAMIN D1000 UNI1 PO (23:58)
[2016-06-02] MEDS ORDERED: CENTRUM PO (23:58)
[2016-06-02] MEDS ORDERED: ZANTAC 150 PO (23:58)
[2016-06-02] MEDS ORDERED: ASAB PO (23:58)
[2016-06-02] MEDS ORDERED: FISH OIL PO (23:59)
[2016-06-02] MEDS ORDERED: APPLE CIDER VINEGAR PO (23:59)
[2016-06-03] MEDS ORDERED: BUM1 PO
[2016-06-03 08:38] LABS: BASOPHILS 0.4 %; BASOPHILS ABSOLUTE 0.03 10/3/uL (0.0-0.16); EOSINOPHILS 9.3 %; EOSINOPHILS ABSOLUTE 0.68 10/3/uL (0.0-0.53); HEMATOCRIT 31.6 % (36.0-48.0); HEMOGLOBIN 10.4 g/dL (12.0-16.0); IMMATURE GRANULOCYTES 0.1 %; IMMATURE GRANULOCYTES ABSOLUTE 0.01 10/3/uL (0.0-0.11); LYMPHOCYTES 26.6 %; LYMPHOCYTES ABSOLUTE 1.95 10/3/uL (0.67-4.30); MANUAL DIFF NO %; MEAN CORPUS HGB CONC 32.9 g/dL (32.0-36.0); MEAN PLATELET VOLUME 8.8 fL (9.2-13.0); MONOCYTES 5.3 %; MONOCYTES ABSOLUTE 0.39 10/3/uL (0.21-1.20); NEUTROPHILS 58.3 %; NEUTROPHILS ABSOLUTE 4.27 10/3/uL (2.02-8.40); PLATELET COUNT 275 10/3/uL (150-400); RBC DISTRIBUTION WIDTH 13.5 % (12.0-16.0); RED CELL COUNT 3.36 10/6/uL (4.0-5.6); WHITE BLOOD CELLS 7.3 10/3/uL (4.5-10.5)
[2016-06-03 08:44] LABS: INTERNATIONAL NORMAL RATI 1.1 UNITS (-); PARTIAL THROMBO TIME 32.4 SEC (22.5-37.2); PROTIME (NOT ORD) 14.1 SEC (12.0-14.5)
[2016-06-03 08:53] LABS: A/G RATIO 0.9 (0.7-1.9); ALBUMIN 3.4 G/DL (3.5-5.0); ALKALINE PHOSPHATASE 135 U/L (45-117); BUN (BLOOD UREA NITROGEN) 30 MG/DL (6-23); CALCIUM, SERUM 9.2 MG/DL (8.5-10.4); CHLORIDE, SERUM 108 MMOL/L (96-112); CHOL/HDL RATIO(NOT ORDER) 3.5 (0-5); CHOLESTEROL 139 MG/DL (< 200); CO2 (CARBON DIOXIDE) 27 MMOL/L (24-34); CREATININE 1.26 MG/DL (0.55-1.02); GFR AFRICAN AMERICAN 54 ML/MIN (>=60); GFR NON AFRICAN AMERICAN 47 ML/MIN (>=60); GLOBULIN 3.6 G/DL (2.5-4.1); GLUCOSE, SERUM 163 MG/DL (60-99); HDL CHOLESTEROL 40 MG/DL (> 49); LDL CHOLESTEROL 73 MG/DL (< 130); NON-HDL CHOLESTEROL 99 MG/DL (< 160); POTASSIUM, SERUM 3.7 MMOL/L (3.5-5.3); SGOT(AST) 18 U/L (5-40); SGPT(ALT) 24 U/L (5-65); SODIUM, SERUM 144 MMOL/L (135-148); TOTAL BILIRUBIN 0.4 MG/DL (0-1.2); TRIGLYCERIDE 131 MG/DL (< 150); TROPONIN I <0.02 NG/ML (<0.05)
[2016-06-03 09:05] LABS: B NATRIURETIC PEPTIDE (BNP) 73.4 PG/ML (< 100.0)
[2016-06-03] MEDS ORDERED: COREG6 PO (13:07)
[2016-06-03 13:26] LABS: ALBUMIN 3.6 G/DL (3.5-5.0); ALKALINE PHOSPHATASE 141 U/L (45-117); CPK 81 U/L (0-200); DIRECT BILIRUBIN < 0.1 MG/DL (0.0-0.4); FOLATE 56.8 NG/ML (>5.2); INDIRECT BILIRUBIN(NOT ORDER) 0.2 MG/DL (0.1-0.9); SGOT(AST) 18 U/L (5-40); SGPT(ALT) 26 U/L (5-65); TOTAL BILIRUBIN 0.3 MG/DL (0-1.2); TOTAL PROTEIN 7.4 G/DL (6.0-8.5)
[2016-06-04 04:19] LABS: BASOPHILS 0.3 %; BASOPHILS ABSOLUTE 0.03 10/3/uL (0.0-0.16); EOSINOPHILS 3.6 %; EOSINOPHILS ABSOLUTE 0.31 10/3/uL (0.0-0.53); HEMATOCRIT 31.5 % (36.0-48.0); IMMATURE GRANULOCYTES 0.1 %; IMMATURE GRANULOCYTES ABSOLUTE 0.01 10/3/uL (0.0-0.11); LYMPHOCYTES 17.3 %; LYMPHOCYTES ABSOLUTE 1.49 10/3/uL (0.67-4.30); MEAN CORPUS HGB CONC 31.7 g/dL (32.0-36.0); MEAN CORPUSCULAR HEMOGLOB 30.7 pg (26.0-34.0); MEAN CORPUSCULAR VOLUME 96.6 fL (80-100); MEAN PLATELET VOLUME 8.5 fL (9.2-13.0); MONOCYTES 3.5 %; NEUTROPHILS 75.2 %; NEUTROPHILS ABSOLUTE 6.45 10/3/uL (2.02-8.40); PLATELET COUNT 262 10/3/uL (150-400); RED CELL COUNT 3.26 10/6/uL (4.0-5.6); WHITE BLOOD CELLS 8.6 10/3/uL (4.5-10.5)
[2016-06-04 04:20] LABS: MANUAL DIFF NO %
[2016-06-04 05:30] LABS: BUN (BLOOD UREA NITROGEN) 33 MG/DL (6-23); CALCIUM, SERUM 9.9 MG/DL (8.5-10.4); CHLORIDE, SERUM 109 MMOL/L (96-112); CO2 (CARBON DIOXIDE) 25 MMOL/L (24-34); CREATININE 1.51 MG/DL (0.55-1.02); GFR AFRICAN AMERICAN 43 ML/MIN (>=60); GFR NON AFRICAN AMERICAN 37 ML/MIN (>=60); GLUCOSE, SERUM 190 MG/DL (60-99); SODIUM, SERUM 144 MMOL/L (135-148)
[2016-06-04 05:32] LABS: CPK 58 U/L (0-200); POTASSIUM, SERUM 5.3 MMOL/L (3.5-5.3)
[2016-06-05 06:20] LABS: CALCIUM, SERUM 9.2 MG/DL (8.5-10.4); CHLORIDE, SERUM 106 MMOL/L (96-112); CO2 (CARBON DIOXIDE) 26 MMOL/L (24-34); CREATININE 1.82 MG/DL (0.55-1.02); GFR AFRICAN AMERICAN 35 ML/MIN (>=60); GFR NON AFRICAN AMERICAN 30 ML/MIN (>=60); GLUCOSE, SERUM 206 MG/DL (60-99); POTASSIUM, SERUM 5.4 MMOL/L (3.5-5.3); SODIUM, SERUM 138 MMOL/L (135-148)
[2016-06-05 06:22] LABS: BUN (BLOOD UREA NITROGEN) 44 MG/DL (6-23)
[2016-06-05 10:46] LABS: BE (BASE EXCESS) -1.2 MEQ/L (0 +/- 2.5); CARBOXYHEMOGLOBIN 0.2 % (0-3); DEVICE NC; HCO3 (ACTUAL BICARBONATE) 24.6 MEQ/L (23-27); INSTRUMENT SERIAL # 8083; METHEMOGLOBIN 0.2 % (0-3); O2 CONTENT 13.8 VOL% (18-24); OPERATOR ID 32186; PCO2 (CO2 TENSION) 46 MMHG (35-45); PO2 (O2 TENSION) 99 MMHG (79-93); SAMPLE Arterial; pH 7.35 (7.37-7.43)
[2016-06-05 10:47] LABS: ALLENS TEST Pos
[2016-06-06 06:40] LABS: CALCIUM, SERUM 8.9 MG/DL (8.5-10.4); CHLORIDE, SERUM 105 MMOL/L (96-112); CO2 (CARBON DIOXIDE) 23 MMOL/L (24-34); CREATININE 1.83 MG/DL (0.55-1.02); GFR AFRICAN AMERICAN 34 ML/MIN (>=60); GFR NON AFRICAN AMERICAN 30 ML/MIN (>=60); GLUCOSE, SERUM 200 MG/DL (60-99); POTASSIUM, SERUM 5.8 MMOL/L (3.5-5.3); SODIUM, SERUM 138 MMOL/L (135-148)
[2016-06-06 06:41] LABS: BUN (BLOOD UREA NITROGEN) 51 MG/DL (6-23)
[2016-06-06 10:19] LABS: ASCORBIC ACID (UR NOT ORDER) 40 (NEG); BILIRUBIN, URINE NEGATIVE (NEG); KETONE, URINE NEGATIVE (NEG); LEUKOCYTE ESTERASE(NOT OR NEG (NEG); WBC (NOT ORDERED) (RFLEX) 4 (0-5)
[2016-06-06 17:57] LABS: BASOPHILS 0.3 %; BASOPHILS ABSOLUTE 0.03 10/3/uL (0.0-0.16); EOSINOPHILS 0.3 %; EOSINOPHILS ABSOLUTE 0.04 10/3/uL (0.0-0.53); HEMATOCRIT 29.5 % (36.0-48.0); HEMOGLOBIN 9.4 g/dL (12.0-16.0); IMMATURE GRANULOCYTES 0.3 %; IMMATURE GRANULOCYTES ABSOLUTE 0.03 10/3/uL (0.0-0.11); LYMPHOCYTES 11.6 %; LYMPHOCYTES ABSOLUTE 1.38 10/3/uL (0.67-4.30); MANUAL DIFF NO %; MEAN CORPUS HGB CONC 31.9 g/dL (32.0-36.0); MEAN CORPUSCULAR HEMOGLOB 30.8 pg (26.0-34.0); MEAN CORPUSCULAR VOLUME 96.7 fL (80-100); MEAN PLATELET VOLUME 8.7 fL (9.2-13.0); MONOCYTES 8.5 %; MONOCYTES ABSOLUTE 1.01 10/3/uL (0.21-1.20); NEUTROPHILS ABSOLUTE 9.38 10/3/uL (2.02-8.40); PLATELET COUNT 240 10/3/uL (150-400); RED CELL COUNT 3.05 10/6/uL (4.0-5.6); WHITE BLOOD CELLS 11.9 10/3/uL (4.5-10.5)
[2016-06-06 18:16] LABS: TROPONIN I <0.02 NG/ML (<0.05)
[2016-06-06 18:17] LABS: CPK 126 U/L (0-200)
[2016-06-07 00:23] LABS: BE (BASE EXCESS) -0.1 MEQ/L (0 +/- 2.5); CARBOXYHEMOGLOBIN 0.6 % (0-3); HCO3 (ACTUAL BICARBONATE) 24.3 MEQ/L (23-27); HEMOBLOGIN CONTENT 8.3 G/DL (12-16); INSTRUMENT SERIAL # 8083; METHEMOGLOBIN 0.3 % (0-3); O2 CONTENT 11.4 VOL% (18-24); OPERATOR ID 31061; PCO2 (CO2 TENSION) 38 MMHG (35-45); PO2 (O2 TENSION) 90 MMHG (79-93); SAMPLE Arterial; pH 7.42 (7.37-7.43)
[2016-06-07 00:24] LABS: ALLENS TEST Pos; BIPAP 16/6 cm.H2O
[2016-06-07 09:29] LABS: BASOPHILS 0.2 %; BASOPHILS ABSOLUTE 0.03 10/3/uL (0.0-0.16); EOSINOPHILS 0.1 %; EOSINOPHILS ABSOLUTE 0.02 10/3/uL (0.0-0.53); HEMOGLOBIN 9.9 g/dL (12.0-16.0); IMMATURE GRANULOCYTES 0.3 %; IMMATURE GRANULOCYTES ABSOLUTE 0.04 10/3/uL (0.0-0.11); LYMPHOCYTES 10.4 %; LYMPHOCYTES ABSOLUTE 1.64 10/3/uL (0.67-4.30); MANUAL DIFF NO %; MEAN CORPUSCULAR HEMOGLOB 31.5 pg (26.0-34.0); MEAN CORPUSCULAR VOLUME 95.5 fL (80-100); MEAN PLATELET VOLUME 9.7 fL (9.2-13.0); MONOCYTES 8.9 %; NEUTROPHILS 80.1 %; NEUTROPHILS ABSOLUTE 12.68 10/3/uL (2.02-8.40); PLATELET COUNT 312 10/3/uL (150-400); RBC DISTRIBUTION WIDTH 14.2 % (12.0-16.0); RED CELL COUNT 3.14 10/6/uL (4.0-5.6); WHITE BLOOD CELLS 15.8 10/3/uL (4.5-10.5)
[2016-06-07 10:08] LABS: ALBUMIN 3.5 G/DL (3.5-5.0); BUN (BLOOD UREA NITROGEN) 38 MG/DL (6-23); CALCIUM, SERUM 9.2 MG/DL (8.5-10.4); CHLORIDE, SERUM 106 MMOL/L (96-112); CO2 (CARBON DIOXIDE) 24 MMOL/L (24-34); CREATININE 1.39 MG/DL (0.55-1.02); GFR AFRICAN AMERICAN 48 ML/MIN (>=60); GFR NON AFRICAN AMERICAN 41 ML/MIN (>=60); GLUCOSE, SERUM 88 MG/DL (60-99); PHOSPHORUS, SERUM 3.1 MG/DL (2.5-4.5); POTASSIUM, SERUM 4.5 MMOL/L (3.5-5.3); SODIUM, SERUM 144 MMOL/L (135-148)
[2016-06-07 11:54] LABS: HEMATOCRIT 27.6 % (36.0-48.0); PLATELET COUNT 236 10/3/uL (150-400)
[2016-06-07 12:11] LABS: BUN (BLOOD UREA NITROGEN) 40 MG/DL (6-23); CALCIUM, SERUM 8.8 MG/DL (8.5-10.4); CHLORIDE, SERUM 108 MMOL/L (96-112); CO2 (CARBON DIOXIDE) 28 MMOL/L (24-34); CREATININE 1.39 MG/DL (0.55-1.02); GFR AFRICAN AMERICAN 48 ML/MIN (>=60); GFR NON AFRICAN AMERICAN 41 ML/MIN (>=60); POTASSIUM, SERUM 4.5 MMOL/L (3.5-5.3); SODIUM, SERUM 146 MMOL/L (135-148)
[2016-06-07 12:13] LABS: GLUCOSE, SERUM 138 MG/DL (60-99)
[2016-06-07 16:52] LABS: TOTAL PROTEIN, CSF 35.3 MG/DL (15-45)
[2016-06-07 19:57] LABS: CSF BASO 0 % (NO REF RANGE); CSF EOS 0 % (0-1); CSF LYMPH (NOT ORD) 9 % (28-96); CSF MONO 91 % (16-56); CSF SEGS (NOT ORD) 0 % (0-7); CSF WBC (NOT ORD) 1 /uL (0-10)
[2016-06-07 19:58] LABS: CSF RBC (NOT ORD) 5 MM3 (NO REFERENCE)
[2016-06-07 19:59] LABS: CSF APPEARANCE (NOT ORD) CLEAR (CLEAR); CSF COLOR (NOT ORD) COLORLESS (COLORLESS); CSF XANTHROCHROMIA NEG (NEG)
[2016-06-08 05:04] LABS: BASOPHILS 0.1 %; BASOPHILS ABSOLUTE 0.01 10/3/uL (0.0-0.16); EOSINOPHILS 0.1 %; EOSINOPHILS ABSOLUTE 0.01 10/3/uL (0.0-0.53); HEMATOCRIT 27.8 % (36.0-48.0); HEMOGLOBIN 9.1 g/dL (12.0-16.0); IMMATURE GRANULOCYTES 0.2 %; IMMATURE GRANULOCYTES ABSOLUTE 0.02 10/3/uL (0.0-0.11); LYMPHOCYTES 8.1 %; LYMPHOCYTES ABSOLUTE 0.84 10/3/uL (0.67-4.30); MEAN CORPUS HGB CONC 32.7 g/dL (32.0-36.0); MEAN CORPUSCULAR HEMOGLOB 31.4 pg (26.0-34.0); MEAN CORPUSCULAR VOLUME 95.9 fL (80-100); MEAN PLATELET VOLUME 9.1 fL (9.2-13.0); MONOCYTES 7.1 %; MONOCYTES ABSOLUTE 0.74 10/3/uL (0.21-1.20); NEUTROPHILS 84.4 %; NEUTROPHILS ABSOLUTE 8.75 10/3/uL (2.02-8.40); PLATELET COUNT 206 10/3/uL (150-400); RBC DISTRIBUTION WIDTH 13.5 % (12.0-16.0); WHITE BLOOD CELLS 10.4 10/3/uL (4.5-10.5)
[2016-06-08 05:06] LABS: MANUAL DIFF NO %
[2016-06-08 05:15] LABS: CALCIUM, SERUM 8.9 MG/DL (8.5-10.4); CHLORIDE, SERUM 110 MMOL/L (96-112); CO2 (CARBON DIOXIDE) 24 MMOL/L (24-34); CREATININE 1.19 MG/DL (0.55-1.02); GFR AFRICAN AMERICAN 58 ML/MIN (>=60); GFR NON AFRICAN AMERICAN 50 ML/MIN (>=60); POTASSIUM, SERUM 3.8 MMOL/L (3.5-5.3); SODIUM, SERUM 145 MMOL/L (135-148)
[2016-06-08 05:17] LABS: BUN (BLOOD UREA NITROGEN) 45 MG/DL (6-23); GLUCOSE, SERUM 257 MG/DL (60-99)
[2016-06-09 04:39] LABS: BASOPHILS 0 %; EOSINOPHILS 0 %; HEMOGLOBIN 10.5 g/dL (12.0-16.0); IMMATURE GRANULOCYTES 0.2 %; IMMATURE GRANULOCYTES ABSOLUTE 0.03 10/3/uL (0.0-0.11); LYMPHOCYTES 6.6 %; LYMPHOCYTES ABSOLUTE 0.81 10/3/uL (0.67-4.30); MEAN CORPUSCULAR HEMOGLOB 30.8 pg (26.0-34.0); MEAN CORPUSCULAR VOLUME 96.2 fL (80-100); MEAN PLATELET VOLUME 9.4 fL (9.2-13.0); MONOCYTES 0.7 %; MONOCYTES ABSOLUTE 0.09 10/3/uL (0.21-1.20); NEUTROPHILS 92.5 %; NEUTROPHILS ABSOLUTE 11.26 10/3/uL (2.02-8.40); RBC DISTRIBUTION WIDTH 13.8 % (12.0-16.0); RED CELL COUNT 3.41 10/6/uL (4.0-5.6); WHITE BLOOD CELLS 12.2 10/3/uL (4.5-10.5)
[2016-06-09 04:40] LABS: HEMATOCRIT 32.8 % (36.0-48.0); MANUAL DIFF NO %; PLATELET COUNT 300 10/3/uL (150-400)
[2016-06-09 05:08] LABS: ALBUMIN 2.8 G/DL (3.5-5.0); BUN (BLOOD UREA NITROGEN) 52 MG/DL (6-23); CHLORIDE, SERUM 114 MMOL/L (96-112); CO2 (CARBON DIOXIDE) 22 MMOL/L (24-34); CPK 536 U/L (0-200); GFR AFRICAN AMERICAN 64 ML/MIN (>=60); GFR NON AFRICAN AMERICAN 55 ML/MIN (>=60); GLUCOSE, SERUM 110 MG/DL (60-99); PHOSPHORUS, SERUM 2.7 MG/DL (2.5-4.5); POTASSIUM, SERUM 3.4 MMOL/L (3.5-5.3); SODIUM, SERUM 150 MMOL/L (135-148)
[2016-06-09 08:55] LABS: SED RATE 94 MM/HR (0-20)
[2016-06-09 17:30] LABS: BE (BASE EXCESS) 0.6 MEQ/L (0 +/- 2.5); CARBOXYHEMOGLOBIN 0.3 % (0-3); HCO3 (ACTUAL BICARBONATE) 25.1 MEQ/L (23-27); HEMOBLOGIN CONTENT 10.7 G/DL (12-16); INSTRUMENT SERIAL # 8083; METHEMOGLOBIN 0.2 % (0-3); OPERATOR ID 18801; PCO2 (CO2 TENSION) 40 MMHG (35-45); PO2 (O2 TENSION) 127 MMHG (79-93); SAMPLE Arterial; pH 7.42 (7.37-7.43)
[2016-06-09 17:31] LABS: ALLENS TEST Pos
[2016-06-09 18:07] LABS: SGPT(ALT) 17 U/L (5-65); TOTAL BILIRUBIN 0.7 MG/DL (0-1.2); TOTAL PROTEIN 7.5 G/DL (6.0-8.5)
[2016-06-09 18:11] LABS: A/G RATIO 0.6 (0.7-1.9); ALKALINE PHOSPHATASE 117 U/L (45-117); GLOBULIN 4.7 G/DL (2.5-4.1); SGOT(AST) 54 U/L (5-40)
[2016-06-10 09:27] LABS: BASOPHILS 0 %; EOSINOPHILS 0 %; HEMATOCRIT 31.8 % (36.0-48.0); HEMOGLOBIN 10.3 g/dL (12.0-16.0); IMMATURE GRANULOCYTES 0.1 %; IMMATURE GRANULOCYTES ABSOLUTE 0.02 10/3/uL (0.0-0.11); LYMPHOCYTES 4.4 %; LYMPHOCYTES ABSOLUTE 0.61 10/3/uL (0.67-4.30); MEAN CORPUS HGB CONC 32.4 g/dL (32.0-36.0); MEAN CORPUSCULAR HEMOGLOB 30.7 pg (26.0-34.0); MEAN CORPUSCULAR VOLUME 94.6 fL (80-100); MEAN PLATELET VOLUME 9.3 fL (9.2-13.0); MONOCYTES 4.6 %; MONOCYTES ABSOLUTE 0.64 10/3/uL (0.21-1.20); NEUTROPHILS 90.9 %; NEUTROPHILS ABSOLUTE 12.64 10/3/uL (2.02-8.40); PLATELET COUNT 317 10/3/uL (150-400); RBC DISTRIBUTION WIDTH 13.9 % (12.0-16.0); RED CELL COUNT 3.36 10/6/uL (4.0-5.6); WHITE BLOOD CELLS 13.9 10/3/uL (4.5-10.5)
[2016-06-10 09:31] LABS: MANUAL DIFF NO %
[2016-06-10 09:43] LABS: A/G RATIO 0.7 (0.7-1.9); ALBUMIN 2.5 G/DL (3.5-5.0); ALKALINE PHOSPHATASE 94 U/L (45-117); BUN (BLOOD UREA NITROGEN) 40 MG/DL (6-23); C-REACTIVE PROTEIN 53.2 MG/L (<8.0); CALCIUM, SERUM 7.8 MG/DL (8.5-10.4); CHLORIDE, SERUM 115 MMOL/L (96-112); CO2 (CARBON DIOXIDE) 23 MMOL/L (24-34); CREATININE 0.94 MG/DL (0.55-1.02); FREE T4 1.27 NG/DL (0.76-1.46); GFR AFRICAN AMERICAN 77 ML/MIN (>=60); GFR NON AFRICAN AMERICAN 66 ML/MIN (>=60); GLOBULIN 3.6 G/DL (2.5-4.1); GLUCOSE, SERUM 73 MG/DL (60-99); POTASSIUM, SERUM 2.8 MMOL/L (3.5-5.3); RHEUMATOID FACTOR QUANT < 10 IU/ML (0-15); SGOT(AST) 34 U/L (5-40); SGPT(ALT) 40 U/L (5-65); SODIUM, SERUM 148 MMOL/L (135-148); TOTAL PROTEIN 6.1 G/DL (6.0-8.5)
[2016-06-10 10:39] LABS: SED RATE 69 MM/HR (0-20)
[2016-06-10 12:34] LABS: ANA TITER <1:40 TITER
[2016-06-10 17:18] LABS: HSV DNA TYPE 1 Not Detected (NOTDET); HSV DNA TYPE 2 Not Detected (NOTDET)
[2016-06-11 06:48] LABS: BASOPHILS 0 %; EOSINOPHILS 0 %; HEMOGLOBIN 11.6 g/dL (12.0-16.0); IMMATURE GRANULOCYTES 0.3 %; IMMATURE GRANULOCYTES ABSOLUTE 0.05 10/3/uL (0.0-0.11); LYMPHOCYTES 4.2 %; LYMPHOCYTES ABSOLUTE 0.79 10/3/uL (0.67-4.30); MEAN CORPUS HGB CONC 32.9 g/dL (32.0-36.0); MEAN CORPUSCULAR HEMOGLOB 31.4 pg (26.0-34.0); MEAN CORPUSCULAR VOLUME 95.4 fL (80-100); MEAN PLATELET VOLUME 9.3 fL (9.2-13.0); MONOCYTES ABSOLUTE 0.57 10/3/uL (0.21-1.20); NEUTROPHILS 92.5 %; NEUTROPHILS ABSOLUTE 17.34 10/3/uL (2.02-8.40); RBC DISTRIBUTION WIDTH 14.2 % (12.0-16.0); WHITE BLOOD CELLS 18.8 10/3/uL (4.5-10.5)
[2016-06-11 06:54] LABS: HEMATOCRIT 35.3 % (36.0-48.0); MANUAL DIFF NO %; PLATELET COUNT 431 10/3/uL (150-400)
[2016-06-11 07:09] LABS: A/G RATIO 0.7 (0.7-1.9); ALBUMIN 2.8 G/DL (3.5-5.0); ALKALINE PHOSPHATASE 104 U/L (45-117); BUN (BLOOD UREA NITROGEN) 45 MG/DL (6-23); CALCIUM, SERUM 8.4 MG/DL (8.5-10.4); CHLORIDE, SERUM 119 MMOL/L (96-112); CO2 (CARBON DIOXIDE) 22 MMOL/L (24-34); CREATININE 1.16 MG/DL (0.55-1.02); GFR AFRICAN AMERICAN 60 ML/MIN (>=60); GFR NON AFRICAN AMERICAN 51 ML/MIN (>=60); GLOBULIN 3.9 G/DL (2.5-4.1); GLUCOSE, SERUM 164 MG/DL (60-99); SGOT(AST) 38 U/L (5-40); SGPT(ALT) 45 U/L (5-65); SODIUM, SERUM 152 MMOL/L (135-148); TOTAL BILIRUBIN 1.2 MG/DL (0-1.2); TOTAL PROTEIN 6.7 G/DL (6.0-8.5)
[2016-06-11 10:10] LABS: ANTI SS-A NEGATIVE (NEGATIVE); ANTI SS-B NEGATIVE (NEGATIVE)
[2016-06-11 12:06] LABS: DEPAKENE (VALPROIC ACID) 65.2 MCG/ML (50.0-100.0)
[2016-06-11 12:07] LABS: CPK 341 U/L (0-200)
[2016-06-12 06:20] LABS: BASOPHILS 0.1 %; BASOPHILS ABSOLUTE 0.01 10/3/uL (0.0-0.16); EOSINOPHILS 0 %; HEMOGLOBIN 9.5 g/dL (12.0-16.0); IMMATURE GRANULOCYTES 0.3 %; IMMATURE GRANULOCYTES ABSOLUTE 0.05 10/3/uL (0.0-0.11); LYMPHOCYTES 4.4 %; LYMPHOCYTES ABSOLUTE 0.73 10/3/uL (0.67-4.30); MEAN CORPUS HGB CONC 32.2 g/dL (32.0-36.0); MEAN CORPUSCULAR HEMOGLOB 31.1 pg (26.0-34.0); MEAN CORPUSCULAR VOLUME 96.7 fL (80-100); MONOCYTES 5.8 %; MONOCYTES ABSOLUTE 0.96 10/3/uL (0.21-1.20); NEUTROPHILS 89.4 %; PLATELET COUNT 350 10/3/uL (150-400); RBC DISTRIBUTION WIDTH 14.6 % (12.0-16.0); RED CELL COUNT 3.05 10/6/uL (4.0-5.6); WHITE BLOOD CELLS 16.5 10/3/uL (4.5-10.5)
[2016-06-12 06:21] LABS: HEMATOCRIT 29.5 % (36.0-48.0); MANUAL DIFF NO %
[2016-06-12 06:33] LABS: BUN (BLOOD UREA NITROGEN) 54 MG/DL (6-23); CALCIUM, SERUM 8.3 MG/DL (8.5-10.4); CHLORIDE, SERUM 123 MMOL/L (96-112); CO2 (CARBON DIOXIDE) 20 MMOL/L (24-34); GFR AFRICAN AMERICAN 40 ML/MIN (>=60); GFR NON AFRICAN AMERICAN 35 ML/MIN (>=60); GLUCOSE, SERUM 191 MG/DL (60-99); POTASSIUM, SERUM 3.6 MMOL/L (3.5-5.3); SODIUM, SERUM 154 MMOL/L (135-148)
[2016-06-12 07:12] LABS: PROCALCITONIN 0.18 ng/mL (<0.5)
[2016-06-12 15:15] LABS: ASCORBIC ACID (UR NOT ORDER) 20 (NEG); BILIRUBIN, URINE NEGATIVE (NEG); KETONE, URINE TRACE MG/DL (NEG); WBC (NOT ORDERED) (RFLEX) 4 (0-5)
[2016-06-12 15:29] LABS: LEUKOCYTE ESTERASE(NOT OR TRACE (NEG)
[2016-06-13 07:03] LABS: BASOPHILS 0.2 %; BASOPHILS ABSOLUTE 0.02 10/3/uL (0.0-0.16); EOSINOPHILS 0 %; HEMATOCRIT 31.8 % (36.0-48.0); HEMOGLOBIN 9.9 g/dL (12.0-16.0); IMMATURE GRANULOCYTES 0.9 %; IMMATURE GRANULOCYTES ABSOLUTE 0.11 10/3/uL (0.0-0.11); LYMPHOCYTES 5.6 %; LYMPHOCYTES ABSOLUTE 0.71 10/3/uL (0.67-4.30); MEAN CORPUS HGB CONC 31.1 g/dL (32.0-36.0); MEAN CORPUSCULAR HEMOGLOB 30.8 pg (26.0-34.0); MEAN CORPUSCULAR VOLUME 99.1 fL (80-100); MEAN PLATELET VOLUME 8.8 fL (9.2-13.0); MONOCYTES 9.6 %; MONOCYTES ABSOLUTE 1.22 10/3/uL (0.21-1.20); NEUTROPHILS 83.7 %; NEUTROPHILS ABSOLUTE 10.62 10/3/uL (2.02-8.40); PLATELET COUNT 320 10/3/uL (150-400); RBC DISTRIBUTION WIDTH 14.4 % (12.0-16.0); RED CELL COUNT 3.21 10/6/uL (4.0-5.6); WHITE BLOOD CELLS 12.7 10/3/uL (4.5-10.5)
[2016-06-13 07:05] LABS: MANUAL DIFF NO %
[2016-06-13 07:18] LABS: ALBUMIN 2.5 G/DL (3.5-5.0); CALCIUM, SERUM 8.4 MG/DL (8.5-10.4); CHLORIDE, SERUM 117 MMOL/L (96-112); CO2 (CARBON DIOXIDE) 22 MMOL/L (24-34); CREATININE 1.64 MG/DL (0.55-1.02); GFR AFRICAN AMERICAN 39 ML/MIN (>=60); GFR NON AFRICAN AMERICAN 34 ML/MIN (>=60); PHOSPHORUS, SERUM 2.3 MG/DL (2.5-4.5); POTASSIUM, SERUM 4.1 MMOL/L (3.5-5.3); SODIUM, SERUM 152 MMOL/L (135-148)
[2016-06-13 07:19] LABS: BUN (BLOOD UREA NITROGEN) 49 MG/DL (6-23); GLUCOSE, SERUM 315 MG/DL (60-99)
[2016-06-14 05:30] LABS: CALCIUM, SERUM 8.4 MG/DL (8.5-10.4); CHLORIDE, SERUM 116 MMOL/L (96-112); CO2 (CARBON DIOXIDE) 24 MMOL/L (24-34); CREATININE 1.52 MG/DL (0.55-1.02); GFR AFRICAN AMERICAN 43 ML/MIN (>=60); GFR NON AFRICAN AMERICAN 37 ML/MIN (>=60); SODIUM, SERUM 148 MMOL/L (135-148)
[2016-06-14 05:36] LABS: BUN (BLOOD UREA NITROGEN) 42 MG/DL (6-23); GLUCOSE, SERUM 361 MG/DL (60-99)
[2016-06-14 06:01] LABS: HEMATOCRIT 29.6 % (36.0-48.0); MEAN CORPUS HGB CONC 30.4 g/dL (32.0-36.0); MEAN CORPUSCULAR HEMOGLOB 29.8 pg (26.0-34.0); MEAN PLATELET VOLUME 9.2 fL (9.2-13.0); NUCLEATED RED BLOOD CELLS 0.3 /100WBC (0-0); PLATELET COUNT 248 10/3/uL (150-400); RBC DISTRIBUTION WIDTH 14.1 % (12.0-16.0); RED CELL COUNT 3.02 10/6/uL (4.0-5.6); WHITE BLOOD CELLS 9.9 10/3/uL (4.5-10.5)
[2016-06-14 06:03] LABS: MANUAL DIFF YES %
[2016-06-14 06:55] LABS: BAND NEUTROPHILS 10 %; LYMPHOCYTES 13 %; LYMPHOCYTES ABSOLUTE (CALC) 1.29 10/3/uL (0.67-4.30); METAMYELOCYTES 2 %; MONOCYTES 5 %; NEUTROPHILS ABSOLUTE (CALC) 7.92 10/3/uL (2.02-8.40); SEGMENTED NEUTROPHIL (0) 70 %; TOTAL NUCLEATED CELLS 100
[2016-06-14 06:56] LABS: PLATELET ESTIMATE ADQ (ADEQUATE); POLYCHROMASIA 1+ (2-5/OIF) (0-1/OIF); TOXIC GRANULATION 1+
[2016-06-14 20:08] LABS: INTACT PTH (ICMA) 66.2 PG/ML (10.0-65.0)
[2016-06-15 06:07] LABS: BUN (BLOOD UREA NITROGEN) 43 MG/DL (6-23); CALCIUM, SERUM 8.1 MG/DL (8.5-10.4); CHLORIDE, SERUM 112 MMOL/L (96-112); CO2 (CARBON DIOXIDE) 27 MMOL/L (24-34); CREATININE 1.33 MG/DL (0.55-1.02); GFR AFRICAN AMERICAN 51 ML/MIN (>=60); GFR NON AFRICAN AMERICAN 44 ML/MIN (>=60); POTASSIUM, SERUM 4.3 MMOL/L (3.5-5.3); SODIUM, SERUM 146 MMOL/L (135-148)
[2016-06-15 06:10] LABS: GLUCOSE, SERUM 256 MG/DL (60-99)
[2016-06-15 06:59] LABS: HEMATOCRIT 28.1 % (36.0-48.0); HEMOGLOBIN 8.5 g/dL (12.0-16.0); MANUAL DIFF YES %; MEAN CORPUS HGB CONC 30.2 g/dL (32.0-36.0); MEAN CORPUSCULAR HEMOGLOB 29.6 pg (26.0-34.0); MEAN CORPUSCULAR VOLUME 97.9 fL (80-100); MEAN PLATELET VOLUME 9.4 fL (9.2-13.0); PLATELET COUNT 217 10/3/uL (150-400); RBC DISTRIBUTION WIDTH 13.9 % (12.0-16.0); RED CELL COUNT 2.87 10/6/uL (4.0-5.6); WHITE BLOOD CELLS 9.6 10/3/uL (4.5-10.5)
[2016-06-15 08:47] LABS: BAND NEUTROPHILS 17 %; EOSINOPHILS 1 %; IMMATURE GRANS ABSOLUTE (CALC) 0.67 10/3/uL (0.0-0.11); LYMPHOCYTES 10 %; LYMPHOCYTES ABSOLUTE (CALC) 0.96 10/3/uL (0.67-4.30); METAMYELOCYTES 5 %; MONOCYTES 13 %; MONOCYTES ABSOLUTE (CALC) 1.25 10/3/uL (0.21-1.20); MYELOCYTES 2 %; NEUTROPHILS ABSOLUTE (CALC) 6.62 10/3/uL (2.02-8.40); PLATELET ESTIMATE ADQ (ADEQUATE); SEGMENTED NEUTROPHIL (0) 52 %; TOTAL NUCLEATED CELLS 100; TOXIC GRANULATION 1+; VACUOLATED NEUTROPHILES OCC
[2016-06-15 08:48] LABS: ELLIPTOCYTES 1+ (3-10/OIF) (0-2/OIF); POLYCHROMASIA 1+ (2-5/OIF) (0-1/OIF); TEARDROP SHAPED RBCS OCC (0-2/OIF)
[2016-06-15 09:44] LABS: COLLECTION TIME 24 h (()); COLLECTON VOLUME 1000 mL (())
[2016-06-16 05:20] LABS: HEMATOCRIT 27.2 % (36.0-48.0); HEMOGLOBIN 8.7 g/dL (12.0-16.0); MEAN CORPUSCULAR HEMOGLOB 31.2 pg (26.0-34.0); MEAN CORPUSCULAR VOLUME 97.5 fL (80-100); PLATELET COUNT 201 10/3/uL (150-400); RBC DISTRIBUTION WIDTH 13.5 % (12.0-16.0); RED CELL COUNT 2.79 10/6/uL (4.0-5.6); WHITE BLOOD CELLS 13.2 10/3/uL (4.5-10.5)
[2016-06-16 05:31] LABS: MANUAL DIFF YES %
[2016-06-16 05:37] LABS: A/G RATIO 0.5 (0.7-1.9); ALBUMIN 1.8 G/DL (3.5-5.0); ALKALINE PHOSPHATASE 69 U/L (45-117); BUN (BLOOD UREA NITROGEN) 34 MG/DL (6-23); CALCIUM, SERUM 8.1 MG/DL (8.5-10.4); CHLORIDE, SERUM 111 MMOL/L (96-112); CO2 (CARBON DIOXIDE) 29 MMOL/L (24-34); CREATININE 1.07 MG/DL (0.55-1.02); DIRECT BILIRUBIN < 0.1 MG/DL (0.0-0.4); GFR AFRICAN AMERICAN 66 ML/MIN (>=60); GFR NON AFRICAN AMERICAN 57 ML/MIN (>=60); GLOBULIN 3.3 G/DL (2.5-4.1); GLUCOSE, SERUM 65 MG/DL (60-99); INDIRECT BILIRUBIN(NOT ORDER) 0.5 MG/DL (0.1-0.9); PHOSPHORUS, SERUM 1.6 MG/DL (2.5-4.5); SGOT(AST) 30 U/L (5-40); SGPT(ALT) 34 U/L (5-65); SODIUM, SERUM 147 MMOL/L (135-148); TOTAL BILIRUBIN 0.6 MG/DL (0-1.2); TOTAL PROTEIN 5.1 G/DL (6.0-8.5)
[2016-06-16 05:39] LABS: PREALBUMIN 14.7 MG/DL (17.0-43.0)
[2016-06-16 06:44] LABS: BAND NEUTROPHILS 10 %; EOSINOPHILS 2 %; EOSINOPHILS ABSOLUTE (CALC) 0.26 10/3/uL (0.0-0.53); IMMATURE GRANS ABSOLUTE (CALC) 0.79 10/3/uL (0.0-0.11); LYMPHOCYTES 6 %; LYMPHOCYTES ABSOLUTE (CALC) 0.79 10/3/uL (0.67-4.30); METAMYELOCYTES 4 %; MONOCYTES 13 %; MONOCYTES ABSOLUTE (CALC) 1.72 10/3/uL (0.21-1.20); MYELOCYTES 2 %; NEUTROPHILS ABSOLUTE (CALC) 9.64 10/3/uL (2.02-8.40); SEGMENTED NEUTROPHIL (0) 63 %; TOTAL NUCLEATED CELLS 100
[2016-06-16 06:45] LABS: ELLIPTOCYTES 1+ (3-10/OIF) (0-2/OIF); PLATELET ESTIMATE ADQ (ADEQUATE); TEARDROP SHAPED RBCS OCC (0-2/OIF)
[2016-06-17 04:50] LABS: BASOPHILS 0.2 %; BASOPHILS ABSOLUTE 0.04 10/3/uL (0.0-0.16); EOSINOPHILS 1.8 %; EOSINOPHILS ABSOLUTE 0.29 10/3/uL (0.0-0.53); HEMATOCRIT 27.4 % (36.0-48.0); HEMOGLOBIN 8.6 g/dL (12.0-16.0); IMMATURE GRANULOCYTES ABSOLUTE 0.33 10/3/uL (0.0-0.11); LYMPHOCYTES 8.7 %; LYMPHOCYTES ABSOLUTE 1.42 10/3/uL (0.67-4.30); MEAN CORPUS HGB CONC 31.4 g/dL (32.0-36.0); MEAN CORPUSCULAR HEMOGLOB 30.2 pg (26.0-34.0); MEAN CORPUSCULAR VOLUME 96.1 fL (80-100); MEAN PLATELET VOLUME 9.5 fL (9.2-13.0); MONOCYTES 11.7 %; MONOCYTES ABSOLUTE 1.91 10/3/uL (0.21-1.20); NEUTROPHILS 75.6 %; NEUTROPHILS ABSOLUTE 12.34 10/3/uL (2.02-8.40); PLATELET COUNT 207 10/3/uL (150-400); RBC DISTRIBUTION WIDTH 13.7 % (12.0-16.0); RED CELL COUNT 2.85 10/6/uL (4.0-5.6); WHITE BLOOD CELLS 16.3 10/3/uL (4.5-10.5)
[2016-06-17 04:52] LABS: MANUAL DIFF NO %
[2016-06-17 05:18] LABS: ALBUMIN 1.8 G/DL (3.5-5.0); CALCIUM, SERUM 8.4 MG/DL (8.5-10.4); CHLORIDE, SERUM 110 MMOL/L (96-112); CO2 (CARBON DIOXIDE) 28 MMOL/L (24-34); GFR AFRICAN AMERICAN 71 ML/MIN (>=60); GFR NON AFRICAN AMERICAN 62 ML/MIN (>=60); POTASSIUM, SERUM 4.2 MMOL/L (3.5-5.3); SODIUM, SERUM 145 MMOL/L (135-148)
[2016-06-17 05:22] LABS: BUN (BLOOD UREA NITROGEN) 29 MG/DL (6-23); GLUCOSE, SERUM 93 MG/DL (60-99); PHOSPHORUS, SERUM 3.4 MG/DL (2.5-4.5)
[2016-06-17 14:23] LABS: ASCORBIC ACID (UR NOT ORDER) 20 (NEG); BILIRUBIN, URINE NEGATIVE (NEG); KETONE, URINE NEGATIVE (NEG); LEUKOCYTE ESTERASE(NOT OR LARGE (NEG)
[2016-06-17 14:24] LABS: WBC (NOT ORDERED) (RFLEX) > 182 (0-5)
[2016-06-18 05:24] LABS: HEMATOCRIT 28.4 % (36.0-48.0); HEMOGLOBIN 9.1 g/dL (12.0-16.0); MEAN CORPUSCULAR HEMOGLOB 30.6 pg (26.0-34.0); MEAN CORPUSCULAR VOLUME 95.6 fL (80-100); RBC DISTRIBUTION WIDTH 13.5 % (12.0-16.0); RED CELL COUNT 2.97 10/6/uL (4.0-5.6); WHITE BLOOD CELLS 20.8 10/3/uL (4.5-10.5)
[2016-06-18 05:28] LABS: MANUAL DIFF YES %; PLATELET COUNT 282 10/3/uL (150-400)
[2016-06-18 05:57] LABS: CALCIUM, SERUM 8.9 MG/DL (8.5-10.4); CHLORIDE, SERUM 107 MMOL/L (96-112); CO2 (CARBON DIOXIDE) 27 MMOL/L (24-34); CREATININE 0.84 MG/DL (0.55-1.02); GFR AFRICAN AMERICAN 88 ML/MIN (>=60); GFR NON AFRICAN AMERICAN 76 ML/MIN (>=60); POTASSIUM, SERUM 4.1 MMOL/L (3.5-5.3); SODIUM, SERUM 144 MMOL/L (135-148)
[2016-06-18 06:13] LABS: BUN (BLOOD UREA NITROGEN) 22 MG/DL (6-23); GLUCOSE, SERUM 39 MG/DL (60-99)
[2016-06-18 06:32] LABS: BAND NEUTROPHILS 4 %; EOSINOPHILS 4 %; EOSINOPHILS ABSOLUTE (CALC) 0.83 10/3/uL (0.0-0.53); IMMATURE GRANS ABSOLUTE (CALC) 0.42 10/3/uL (0.0-0.11); LYMPHOCYTES 6 %; LYMPHOCYTES ABSOLUTE (CALC) 1.25 10/3/uL (0.67-4.30); METAMYELOCYTES 2 %; MONOCYTES 4 %; MONOCYTES ABSOLUTE (CALC) 0.83 10/3/uL (0.21-1.20); NEUTROPHILS ABSOLUTE (CALC) 17.47 10/3/uL (2.02-8.40); SEGMENTED NEUTROPHIL (0) 80 %; TOTAL NUCLEATED CELLS 100
[2016-06-18 06:33] LABS: PLATELET ESTIMATE ADQ (ADEQUATE); RBC MORPHOLOGY NORM (NORMAL)
[2016-06-18 07:46] LABS: PROCALCITONIN 0.71 ng/mL (<0.5)
[2016-06-18 18:27] LABS: COPROPORPHYRIN - UG/DL 4 ug/dL (()); PORPHOBILINOGEN - MG/L <1.0 mg/L (()); UROPORPHYRIN - UG/DL 4 ug/dL (())
[2016-06-19 04:19] LABS: HEMATOCRIT 28.1 % (36.0-48.0); HEMOGLOBIN 8.9 g/dL (12.0-16.0); MEAN CORPUS HGB CONC 31.7 g/dL (32.0-36.0); MEAN CORPUSCULAR HEMOGLOB 30.4 pg (26.0-34.0); MEAN CORPUSCULAR VOLUME 95.9 fL (80-100); MEAN PLATELET VOLUME 8.6 fL (9.2-13.0); PLATELET COUNT 303 10/3/uL (150-400); RBC DISTRIBUTION WIDTH 13.7 % (12.0-16.0); RED CELL COUNT 2.93 10/6/uL (4.0-5.6)
[2016-06-19 04:22] LABS: MANUAL DIFF YES %
[2016-06-19 04:34] LABS: BUN (BLOOD UREA NITROGEN) 21 MG/DL (6-23); CALCIUM, SERUM 8.6 MG/DL (8.5-10.4); CHLORIDE, SERUM 106 MMOL/L (96-112); CO2 (CARBON DIOXIDE) 28 MMOL/L (24-34); GFR AFRICAN AMERICAN 57 ML/MIN (>=60); GFR NON AFRICAN AMERICAN 49 ML/MIN (>=60); GLUCOSE, SERUM 198 MG/DL (60-99); POTASSIUM, SERUM 4.5 MMOL/L (3.5-5.3); SODIUM, SERUM 144 MMOL/L (135-148)
[2016-06-19 04:49] LABS: BAND NEUTROPHILS 5 %; BASOPHILS 1 %; EOSINOPHILS 1 %; LYMPHOCYTES 13 %; METAMYELOCYTES 2 %; MONOCYTES 9 %; OVALOCYTES 1+ (3-10/OIF) (0-2/OIF); SEGMENTED NEUTROPHIL (0) 69 %; TEARDROP SHAPED RBCS FEW (3-10/OIF); TOTAL NUCLEATED CELLS 100
[2016-06-20 07:09] LABS: BASOPHILS 0.1 %; BASOPHILS ABSOLUTE 0.01 10/3/uL (0.0-0.16); EOSINOPHILS 2.5 %; EOSINOPHILS ABSOLUTE 0.32 10/3/uL (0.0-0.53); HEMATOCRIT 25.5 % (36.0-48.0); IMMATURE GRANULOCYTES 2.4 %; LYMPHOCYTES 17.2 %; LYMPHOCYTES ABSOLUTE 2.17 10/3/uL (0.67-4.30); MEAN CORPUS HGB CONC 31.4 g/dL (32.0-36.0); MEAN CORPUSCULAR HEMOGLOB 30.7 pg (26.0-34.0); MEAN CORPUSCULAR VOLUME 97.7 fL (80-100); MEAN PLATELET VOLUME 8.5 fL (9.2-13.0); MONOCYTES 13.1 %; MONOCYTES ABSOLUTE 1.66 10/3/uL (0.21-1.20); NEUTROPHILS 64.7 %; NEUTROPHILS ABSOLUTE 8.17 10/3/uL (2.02-8.40); PLATELET COUNT 284 10/3/uL (150-400); RBC DISTRIBUTION WIDTH 13.9 % (12.0-16.0); RED CELL COUNT 2.61 10/6/uL (4.0-5.6); WHITE BLOOD CELLS 12.6 10/3/uL (4.5-10.5)
[2016-06-20 07:10] LABS: MANUAL DIFF NO %
[2016-06-21 06:13] LABS: BASOPHILS 0.1 %; BASOPHILS ABSOLUTE 0.01 10/3/uL (0.0-0.16); EOSINOPHILS 2.6 %; EOSINOPHILS ABSOLUTE 0.29 10/3/uL (0.0-0.53); HEMATOCRIT 24.3 % (36.0-48.0); HEMOGLOBIN 7.7 g/dL (12.0-16.0); IMMATURE GRANULOCYTES 1.5 %; IMMATURE GRANULOCYTES ABSOLUTE 0.16 10/3/uL (0.0-0.11); LYMPHOCYTES 18.8 %; LYMPHOCYTES ABSOLUTE 2.07 10/3/uL (0.67-4.30); MEAN CORPUS HGB CONC 31.7 g/dL (32.0-36.0); MEAN CORPUSCULAR HEMOGLOB 30.8 pg (26.0-34.0); MEAN CORPUSCULAR VOLUME 97.2 fL (80-100); MEAN PLATELET VOLUME 8.3 fL (9.2-13.0); MONOCYTES ABSOLUTE 1.32 10/3/uL (0.21-1.20); NEUTROPHILS ABSOLUTE 7.14 10/3/uL (2.02-8.40); PLATELET COUNT 280 10/3/uL (150-400); RBC DISTRIBUTION WIDTH 13.6 % (12.0-16.0)
[2016-06-21 06:14] LABS: MANUAL DIFF NO %
[2016-06-21 06:26] LABS: BUN (BLOOD UREA NITROGEN) 24 MG/DL (6-23); CALCIUM, SERUM 8.7 MG/DL (8.5-10.4); CHLORIDE, SERUM 108 MMOL/L (96-112); CO2 (CARBON DIOXIDE) 29 MMOL/L (24-34); GFR AFRICAN AMERICAN 71 ML/MIN (>=60); GFR NON AFRICAN AMERICAN 62 ML/MIN (>=60); POTASSIUM, SERUM 4.3 MMOL/L (3.5-5.3); SODIUM, SERUM 147 MMOL/L (135-148)
[2016-06-21 06:27] LABS: GLUCOSE, SERUM 115 MG/DL (60-99)
[2016-06-22 05:32] LABS: BASOPHILS 0.1 %; BASOPHILS ABSOLUTE 0.01 10/3/uL (0.0-0.16); EOSINOPHILS 2.2 %; EOSINOPHILS ABSOLUTE 0.23 10/3/uL (0.0-0.53); HEMATOCRIT 24.7 % (36.0-48.0); HEMOGLOBIN 7.5 g/dL (12.0-16.0); IMMATURE GRANULOCYTES 1.4 %; IMMATURE GRANULOCYTES ABSOLUTE 0.15 10/3/uL (0.0-0.11); LYMPHOCYTES 15.7 %; LYMPHOCYTES ABSOLUTE 1.66 10/3/uL (0.67-4.30); MEAN CORPUS HGB CONC 30.4 g/dL (32.0-36.0); MEAN CORPUSCULAR VOLUME 95.4 fL (80-100); MEAN PLATELET VOLUME 8.1 fL (9.2-13.0); MONOCYTES 10.8 %; MONOCYTES ABSOLUTE 1.14 10/3/uL (0.21-1.20); NEUTROPHILS 69.8 %; NEUTROPHILS ABSOLUTE 7.38 10/3/uL (2.02-8.40); PLATELET COUNT 308 10/3/uL (150-400); RED CELL COUNT 2.59 10/6/uL (4.0-5.6); WHITE BLOOD CELLS 10.6 10/3/uL (4.5-10.5)
[2016-06-22 05:34] LABS: MANUAL DIFF NO %
[2016-06-22 05:38] LABS: IRON BINDING CAPACITY 237 MCG/DL (225-410)
[2016-06-22 09:57] LABS: FERRITIN 374 NG/ML (8-252); SGOT(AST) 87 U/L (5-40); SGPT(ALT) 104 U/L (5-65); TOTAL BILIRUBIN 0.4 MG/DL (0-1.2)
[2016-06-22 09:59] LABS: ALBUMIN 2.5 G/DL (3.5-5.0); ALKALINE PHOSPHATASE 132 U/L (45-117); DIRECT BILIRUBIN < 0.1 MG/DL (0.0-0.4); INDIRECT BILIRUBIN(NOT ORDER) 0.3 MG/DL (0.1-0.9); TOTAL PROTEIN 6.4 G/DL (6.0-8.5)
[2016-06-22 10:13] LABS: PROCALCITONIN 0.06 ng/mL (<0.5)
[2016-06-22 12:06] LABS: % IRON SAT 28 % (20-50); IRON, SERUM 67 MCG/DL (35-150)
[2016-06-23 05:59] LABS: BASOPHILS 0.1 %; BASOPHILS ABSOLUTE 0.02 10/3/uL (0.0-0.16); EOSINOPHILS 1.7 %; EOSINOPHILS ABSOLUTE 0.25 10/3/uL (0.0-0.53); HEMOGLOBIN 7.5 g/dL (12.0-16.0); IMMATURE GRANULOCYTES 0.7 %; LYMPHOCYTES 14.5 %; MEAN CORPUS HGB CONC 31.3 g/dL (32.0-36.0); MEAN CORPUSCULAR HEMOGLOB 30.9 pg (26.0-34.0); MEAN PLATELET VOLUME 8.2 fL (9.2-13.0); MONOCYTES 8.8 %; MONOCYTES ABSOLUTE 1.33 10/3/uL (0.21-1.20); NEUTROPHILS 74.2 %; NEUTROPHILS ABSOLUTE 11.23 10/3/uL (2.02-8.40); PLATELET COUNT 296 10/3/uL (150-400); RBC DISTRIBUTION WIDTH 13.8 % (12.0-16.0); RED CELL COUNT 2.43 10/6/uL (4.0-5.6)
[2016-06-23 06:00] LABS: MANUAL DIFF NO %; MEAN CORPUSCULAR VOLUME 98.8 fL (80-100); WHITE BLOOD CELLS 15.1 10/3/uL (4.5-10.5)
[2016-06-23 06:36] LABS: A/G RATIO 0.7 (0.7-1.9); ALBUMIN 2.6 G/DL (3.5-5.0); ALKALINE PHOSPHATASE 133 U/L (45-117); BUN (BLOOD UREA NITROGEN) 22 MG/DL (6-23); CALCIUM, SERUM 9.4 MG/DL (8.5-10.4); CHLORIDE, SERUM 105 MMOL/L (96-112); CO2 (CARBON DIOXIDE) 29 MMOL/L (24-34); CREATININE 1.28 MG/DL (0.55-1.02); GFR AFRICAN AMERICAN 53 ML/MIN (>=60); GFR NON AFRICAN AMERICAN 46 ML/MIN (>=60); GLOBULIN 3.8 G/DL (2.5-4.1); POTASSIUM, SERUM 4.3 MMOL/L (3.5-5.3); SGOT(AST) 76 U/L (5-40); SGPT(ALT) 105 U/L (5-65); SODIUM, SERUM 142 MMOL/L (135-148); TOTAL BILIRUBIN 0.4 MG/DL (0-1.2); TOTAL PROTEIN 6.4 G/DL (6.0-8.5)
[2016-06-23 06:37] LABS: GLUCOSE, SERUM 220 MG/DL (60-99)
[2016-06-23 12:04] LABS: ALLENS TEST Pos; BE (BASE EXCESS) 3.3 MEQ/L (0 +/- 2.5); HCO3 (ACTUAL BICARBONATE) 29.1 MEQ/L (23-27); HEMOBLOGIN CONTENT 7.1 G/DL (12-16); INSTRUMENT SERIAL # 35151; METHEMOGLOBIN 0.8 % (0-3); O2 CONTENT 9.6 VOL% (18-24); PCO2 (CO2 TENSION) 52 MMHG (35-45); PO2 (O2 TENSION) 89 MMHG (79-93); SAMPLE Arterial; pH 7.36 (7.37-7.43)
[2016-06-24 04:28] LABS: BUN (BLOOD UREA NITROGEN) 24 MG/DL (6-23); CALCIUM, SERUM 8.9 MG/DL (8.5-10.4); CHLORIDE, SERUM 108 MMOL/L (96-112); CO2 (CARBON DIOXIDE) 31 MMOL/L (24-34); CREATININE 0.95 MG/DL (0.55-1.02); GFR AFRICAN AMERICAN 76 ML/MIN (>=60); GFR NON AFRICAN AMERICAN 66 ML/MIN (>=60); PHOSPHORUS, SERUM 2.8 MG/DL (2.5-4.5); POTASSIUM, SERUM 3.9 MMOL/L (3.5-5.3); SODIUM, SERUM 145 MMOL/L (135-148)
[2016-06-24 04:42] LABS: GLUCOSE, SERUM 83 MG/DL (60-99)
[2016-06-24 05:27] LABS: BASOPHILS 0.2 %; BASOPHILS ABSOLUTE 0.02 10/3/uL (0.0-0.16); EOSINOPHILS 1.7 %; EOSINOPHILS ABSOLUTE 0.17 10/3/uL (0.0-0.53); IMMATURE GRANULOCYTES 0.5 %; IMMATURE GRANULOCYTES ABSOLUTE 0.05 10/3/uL (0.0-0.11); LYMPHOCYTES 15.2 %; MEAN CORPUS HGB CONC 31.2 g/dL (32.0-36.0); MEAN CORPUSCULAR HEMOGLOB 30.3 pg (26.0-34.0); MEAN CORPUSCULAR VOLUME 97.3 fL (80-100); MEAN PLATELET VOLUME 8.1 fL (9.2-13.0); MONOCYTES ABSOLUTE 0.59 10/3/uL (0.21-1.20); NEUTROPHILS 76.4 %; NEUTROPHILS ABSOLUTE 7.53 10/3/uL (2.02-8.40); PLATELET COUNT 215 10/3/uL (150-400); RBC DISTRIBUTION WIDTH 13.7 % (12.0-16.0); RED CELL COUNT 2.21 10/6/uL (4.0-5.6); WHITE BLOOD CELLS 9.9 10/3/uL (4.5-10.5)
[2016-06-24 05:39] LABS: HEMATOCRIT 21.5 % (36.0-48.0); HEMOGLOBIN 6.7 g/dL (12.0-16.0)
[2016-06-24 05:41] LABS: MANUAL DIFF NO %
[2016-06-24 18:44] LABS: HEMATOCRIT 25.7 % (36.0-48.0)
[2016-06-24 20:01] LABS: THYROID PEROXIDASE AUTO AB 4.8 IU/mL (0.0-9.0)
[2016-06-24 22:16] LABS: THYROGLOBULIN AUTO ANTIBODY <0.9 IU/mL (0.0-4.0)
[2016-06-25 04:11] LABS: BASOPHILS 0.4 %; BASOPHILS ABSOLUTE 0.03 10/3/uL (0.0-0.16); EOSINOPHILS 1.7 %; EOSINOPHILS ABSOLUTE 0.14 10/3/uL (0.0-0.53); HEMATOCRIT 25.7 % (36.0-48.0); HEMOGLOBIN 8.1 g/dL (12.0-16.0); IMMATURE GRANULOCYTES 0.5 %; IMMATURE GRANULOCYTES ABSOLUTE 0.04 10/3/uL (0.0-0.11); LYMPHOCYTES 23.7 %; LYMPHOCYTES ABSOLUTE 1.97 10/3/uL (0.67-4.30); MEAN CORPUS HGB CONC 31.5 g/dL (32.0-36.0); MEAN CORPUSCULAR HEMOGLOB 29.9 pg (26.0-34.0); MEAN CORPUSCULAR VOLUME 94.8 fL (80-100); MEAN PLATELET VOLUME 8.1 fL (9.2-13.0); MONOCYTES 6.4 %; MONOCYTES ABSOLUTE 0.53 10/3/uL (0.21-1.20); NEUTROPHILS 67.3 %; NEUTROPHILS ABSOLUTE 5.61 10/3/uL (2.02-8.40); PLATELET COUNT 213 10/3/uL (150-400); RBC DISTRIBUTION WIDTH 16.2 % (12.0-16.0); WHITE BLOOD CELLS 8.3 10/3/uL (4.5-10.5)
[2016-06-25 04:12] LABS: MANUAL DIFF NO %; RED CELL COUNT 2.71 10/6/uL (4.0-5.6)
[2016-06-25 04:20] LABS: A/G RATIO 0.7 (0.7-1.9); ALBUMIN 2.3 G/DL (3.5-5.0); CALCIUM, SERUM 8.7 MG/DL (8.5-10.4); CHLORIDE, SERUM 110 MMOL/L (96-112); CO2 (CARBON DIOXIDE) 30 MMOL/L (24-34); CREATININE 0.97 MG/DL (0.55-1.02); GFR AFRICAN AMERICAN 74 ML/MIN (>=60); GFR NON AFRICAN AMERICAN 64 ML/MIN (>=60); GLOBULIN 3.5 G/DL (2.5-4.1); PHOSPHORUS, SERUM 3.1 MG/DL (2.5-4.5); POTASSIUM, SERUM 3.9 MMOL/L (3.5-5.3); SGOT(AST) 45 U/L (5-40); SGPT(ALT) 83 U/L (5-65); SODIUM, SERUM 148 MMOL/L (135-148); TOTAL BILIRUBIN 0.4 MG/DL (0-1.2); TOTAL PROTEIN 5.8 G/DL (6.0-8.5)
[2016-06-25 04:24] LABS: ALKALINE PHOSPHATASE 121 U/L (45-117); BUN (BLOOD UREA NITROGEN) 19 MG/DL (6-23); GLUCOSE, SERUM 63 MG/DL (60-99)
[2016-06-26 05:51] LABS: BASOPHILS 0.6 %; BASOPHILS ABSOLUTE 0.04 10/3/uL (0.0-0.16); EOSINOPHILS 3.2 %; EOSINOPHILS ABSOLUTE 0.23 10/3/uL (0.0-0.53); HEMATOCRIT 25.5 % (36.0-48.0); IMMATURE GRANULOCYTES 0.3 %; IMMATURE GRANULOCYTES ABSOLUTE 0.02 10/3/uL (0.0-0.11); LYMPHOCYTES 18.3 %; MANUAL DIFF NO %; MEAN CORPUS HGB CONC 31.4 g/dL (32.0-36.0); MEAN CORPUSCULAR HEMOGLOB 29.5 pg (26.0-34.0); MEAN CORPUSCULAR VOLUME 94.1 fL (80-100); MEAN PLATELET VOLUME 8.1 fL (9.2-13.0); MONOCYTES 7.2 %; MONOCYTES ABSOLUTE 0.51 10/3/uL (0.21-1.20); NEUTROPHILS 70.4 %; NEUTROPHILS ABSOLUTE 4.99 10/3/uL (2.02-8.40); PLATELET COUNT 208 10/3/uL (150-400); RBC DISTRIBUTION WIDTH 15.8 % (12.0-16.0); RED CELL COUNT 2.71 10/6/uL (4.0-5.6); WHITE BLOOD CELLS 7.1 10/3/uL (4.5-10.5)
[2016-06-26 06:08] LABS: ALBUMIN 2.3 G/DL (3.5-5.0); BUN (BLOOD UREA NITROGEN) 21 MG/DL (6-23); CALCIUM, SERUM 8.8 MG/DL (8.5-10.4); CHLORIDE, SERUM 105 MMOL/L (96-112); CO2 (CARBON DIOXIDE) 28 MMOL/L (24-34); GFR AFRICAN AMERICAN 71 ML/MIN (>=60); GFR NON AFRICAN AMERICAN 62 ML/MIN (>=60); PHOSPHORUS, SERUM 2.8 MG/DL (2.5-4.5); SODIUM, SERUM 143 MMOL/L (135-148)
[2016-06-26 06:12] LABS: GLUCOSE, SERUM 259 MG/DL (60-99)
[2016-06-27 04:44] LABS: BASOPHILS 0.4 %; BASOPHILS ABSOLUTE 0.02 10/3/uL (0.0-0.16); EOSINOPHILS 2.4 %; EOSINOPHILS ABSOLUTE 0.13 10/3/uL (0.0-0.53); HEMATOCRIT 24.1 % (36.0-48.0); HEMOGLOBIN 7.7 g/dL (12.0-16.0); IMMATURE GRANULOCYTES 0.2 %; IMMATURE GRANULOCYTES ABSOLUTE 0.01 10/3/uL (0.0-0.11); LYMPHOCYTES 26.6 %; LYMPHOCYTES ABSOLUTE 1.46 10/3/uL (0.67-4.30); MEAN CORPUSCULAR HEMOGLOB 29.5 pg (26.0-34.0); MEAN CORPUSCULAR VOLUME 92.3 fL (80-100); MEAN PLATELET VOLUME 8.3 fL (9.2-13.0); MONOCYTES 7.3 %; NEUTROPHILS 63.1 %; NEUTROPHILS ABSOLUTE 3.46 10/3/uL (2.02-8.40); PLATELET COUNT 197 10/3/uL (150-400); RBC DISTRIBUTION WIDTH 15.4 % (12.0-16.0); RED CELL COUNT 2.61 10/6/uL (4.0-5.6); WHITE BLOOD CELLS 5.5 10/3/uL (4.5-10.5)
[2016-06-27 04:55] LABS: ALBUMIN 2.4 G/DL (3.5-5.0); BUN (BLOOD UREA NITROGEN) 23 MG/DL (6-23); CALCIUM, SERUM 8.9 MG/DL (8.5-10.4); CHLORIDE, SERUM 107 MMOL/L (96-112); CO2 (CARBON DIOXIDE) 27 MMOL/L (24-34); CREATININE 1.05 MG/DL (0.55-1.02); GFR AFRICAN AMERICAN 67 ML/MIN (>=60); GFR NON AFRICAN AMERICAN 58 ML/MIN (>=60); GLUCOSE, SERUM 274 MG/DL (60-99); PHOSPHORUS, SERUM 2.8 MG/DL (2.5-4.5); SODIUM, SERUM 142 MMOL/L (135-148)
[2016-06-27 04:57] LABS: MANUAL DIFF NO %
[2016-06-29 13:07] LABS: TIME 24 h (()); VOLUME 1200 mL (())
[2016-06-30 12:29] LABS: TIME 24; VOLUME 1200
[2016-07-02 19:05] LABS: COPROPORPHYRIN [CALC] 22 ug/24h (<78); UROPORPHYRIN [CALC] 28 ug/24h (<25)
[2016-07-02 19:06] LABS: PORPHOBILINOGEN [CALC] <1.2 mg/24h (0.0-2.0)
== END 2016-06-28 15:13 | DRG 56 ==
LOC: ER 21:22 → CDU1 23:59 → 1SO 06-05 22:01 → IMCU 06-07 09:06 → 5NO 06-20 00:02 → CCU 06-23 06:48 → 6NO 06-25 20:38
PROVIDERS: Emergency Medicine; Hospitalist; Internal Medicine; Internal Medicine Critical Care Medicine; Nurse Practitioner; Nurse Practitioner Family; Psychiatry & Neurology Neurology
PROC: 5A09357 Assistance with Respiratory Ventilation, Less than 24 Consecutive Hours, Continuous Positive Airway Pressure (ICD-10-PCS; principal; 2016-06-04)
PROC: 30233N1 Transfusion of Nonautologous Red Blood Cells into Peripheral Vein, Percutaneous Approach (ICD-10-PCS; 2016-06-24)
DX: G25.79 Other drug induced movement disorders (principal); G92 Toxic encephalopathy; J96.01 Acute respiratory failure with hypoxia; N17.9 Acute kidney failure, unspecified; K31.84 Gastroparesis; N18.3 Chronic kidney disease, stage 3 (moderate); E11.40 Type 2 diabetes mellitus with diabetic neuropathy, unspecified; E87.0 Hyperosmolality and hypernatremia; T83.511A Infection and inflammatory reaction due to indwelling urethral catheter, initial encounter; N39.0 Urinary tract infection, site not specified; E11.22 Type 2 diabetes mellitus with diabetic chronic kidney disease; E87.5 Hyperkalemia; E11.65 Type 2 diabetes mellitus with hyperglycemia; E11.649 Type 2 diabetes mellitus with hypoglycemia without coma; I12.9 Hypertensive chronic kidney disease with stage 1 through stage 4 chronic kidney disease, or unspecified chronic kidney disease; G89.4 Chronic pain syndrome; I89.0 Lymphedema, not elsewhere classified; F41.9 Anxiety disorder, unspecified; F32.9 Major depressive disorder, single episode, unspecified; G47.33 Obstructive sleep apnea (adult) (pediatric); E66.9 Obesity, unspecified; E55.9 Vitamin D deficiency, unspecified; E11.319 Type 2 diabetes mellitus with unspecified diabetic retinopathy without macular edema; E11.43 Type 2 diabetes mellitus with diabetic autonomic (poly)neuropathy; I16.0 Hypertensive urgency; T43.205A Adverse effect of unspecified antidepressants, initial encounter; D63.8 Anemia in other chronic diseases classified elsewhere; B96.20 Unspecified Escherichia coli [E. coli] as the cause of diseases classified elsewhere; Z96.41 Presence of insulin pump (external) (internal); Z79.4 Long term (current) use of insulin; Z88.2 Allergy status to sulfonamides; Z88.5 Allergy status to narcotic agent; Z82.49 Family history of ischemic heart disease and other diseases of the circulatory system; Z83.3 Family history of diabetes mellitus; Z80.3 Family history of malignant neoplasm of breast; Z98.890 Other specified postprocedural states; Z99.81 Dependence on supplemental oxygen; Z68.34 Body mass index [BMI] 34.0-34.9, adult
CPT/HCPCS: 36415; 36600; 62270; 70450; 70547; 70551; 71010; 74000; 74022; 77003; 80048; 80053; 80061; 80069; 80076; 80164; 81001; 82140; 82175; 82248; 82306; 82330; 82436; 82533; 82550; 82553; 82570; 82607; 82728; 82746; 82803; 82805; 82945; 82947; 82962; 83036; 83519; 83519-59; 83520; 83540; 83550; 83605; 83655; 83735; 83825; 83880; 83970; 84100; 84110; 84120; 84132; 84134; 84145; 84156; 84157; 84295; 84300; 84439; 84443; 84484; 84703; 84999; 85014; 85018; 85025; 85049; 85610; 85652; 85730; 86039; 86140; 86235; 86235-59; 86256; 86256-59; 86376; 86431; 86592; 86800; 86850; 86900; 86901; 86920; 87040; 87070; 87077; 87086; 87186; 87205; 87389; 87529; 87529-59; 87641; 89051; 92610-GN; 93005; 93880; 93970; 94660; 94762; 95813; 95816; 97110-GP; 97116-GP; 97161-GP; 97164-GP; 97165-GO; 97168-GO; 97530-GP; 97535-GO; 99291; A9270-GY; C8929; C9113; G8987-CL-GO; G8988-CK-GO; J0360; J1200; J1630; J1953; J2405; J2930; J3411; J3486; P9016; Q9957